=== PATIENT | female | born 1945 ===

== ENCOUNTER 2018-03-27 08:36 | Inpatient (IN) | payer MEDICARE, OTHER ==
[2018-03-27 08:41] VITALS: BMI 32.5
[2018-03-27] MEDS ORDERED: Sodium Chloride 0.9% 1,000 ML IV STA (08:52)
--- NOTE | 2018-03-27 08:58 | ED PDOC ---
Lower Extremity Pain/Injury Time Seen by Provider: 03/27/18 08:41 Chief Complaint (Nursing): Lower Extremity Problem/Injury History Per: Patient Onset/Duration Of Symptoms: Hrs (1) Current Symptoms Are (Timing): Still Present Severity: Moderate Pain Scale Rating Of: 7 Additional Complaint(s): Slipped at home with injury to right ankle. Denies other injury. Denies head, neck or back injury. Denies dizziness or headache. Denies chest pain or palpitaions. Past Medical History Vital Signs: Last Vital Signs Temp 97 F L 03/27/18 08:40 Pulse 77 03/27/18 08:40 Resp BP 164/81 H 03/27/18 08:40 Pulse Ox 100 03/27/18 08:40 - Medical History PMH: Anemia, Colonic Polyps, Diabetes, HTN Denies: Chronic Kidney Disease - Surgical History Surgical History: Endoscopy - Family History Family History: States: Unknown Family Hx - Home Medications Home Medications: Ambulatory Orders Medication Instructions Recorded Metformin Hydrochloride/Elizabeth 1 tab PO DAILY 12/09/14 [Janumet 1000 mg-50 mg] Olmesartan/Hydrochlorothiazide 1 tab PO DAILY 12/09/14 [Benicar Hct 12.5 mg-20 mg] Aspirin [Aspirin EC] 1 tab PO DAILY 12/12/14 - Allergies Allergies/Adverse Reactions: Allergies Allergy/AdvReac Type Severity Reaction Status Date / Time No Known Allergies Allergy Verified 12/09/14 09:15 Review of Systems ROS Statement: Except As Marked, All Systems Reviewed And Found Negative Musculoskeletal: Positive for: Other (Ankle pain) Physical Exam - Reviewed Nursing Documentation Reviewed: Yes Vital Signs Reviewed: Yes - Physical Exam Appears: Positive for: Non-toxic, Uncomfortable Head Exam: Positive for: ATRAUMATIC, NORMAL INSPECTION, NORMOCEPHALIC Skin: Positive for: Normal Color, Warm, DRY Eye Exam: Positive for: EOMI, Normal appearance, PERRL ENT: Positive for: Normal ENT Inspection Neck: Positive for: Normal, Painless ROM Cardiovascular/Chest: Positive for: Regular Rate, Rhythm Respiratory: Positive for: CNT, Normal Breath Sounds Gastrointestinal/Abdominal: Positive for: Normal Exam, Soft Back: Positive for: Normal Inspection Extremity: Positive for: Other (Right ankle, medial maleolus, distal tibia protruding from open wound over medial maleolus. DP pulse right side 2/4. Pt able to wiggle toes, sensation intact) Neurologic/Psych: Positive for: Alert, Oriented - Laboratory Results Result Diagrams: 03/27/18 09:05 03/27/18 09:05 - ECG O2 Sat by Pulse Oximetry: 100 - Progress Re-evaluation Time: 09:34 Condition: Re-examined (Xray displaced fx distal fibula with dislocation tibia with disruption of mortise. DP pulse 2/4 color pink, foot warm able to move all toes with sensation intact) Disposition - Clinical Impression Clinical Impression: Open fibular fracture - Patient ED Disposition Is Patient to be Admitted: Yes - Disposition Disposition Time: 09:43 Condition: FAIR Forms: [employer] (Sinhala) - Pt Status Changed To: Hospital Disposition Of: Inpatient - Admit Certification Admit to Inpatient:: After my assessment, the patient will require hospitalization for at least two midnights. This is because of the severity of symptoms shown, intensity of services needed, and/or the medical risk in this patient being treated as an outpatient. - POA Present On Arrival: None
[2018-03-27 09:19] LABS: BASO % 0.4 % (0.0-2.0); EOS % 0.4 % (0.0-4.0); LYMPH # 1.5 K/uL (1.0-4.3); LYMPH % 21.3 % (20.0-40.0); MEAN CELL VOLUME 89.9 fl (81.0-99.0); MEAN CORPUSCULAR HEMOGLOBIN 29.6 pg (27.0-31.0); MEAN CORPUSCULAR HGB CONC 32.9 g/dL (33.0-37.0); MEAN PLATELET VOLUME 9.2 fl (7.2-11.7); MONO # 0.4 K/uL (0.0-0.8); MONO % 5.8 % (0.0-10.0); NEUT % 72.1 % (50.0-75.0); NRBC % 0.1 % (0.0-0.0); RBC 4.06 Mil/uL (3.80-5.20); RED CELL DISTRIBUTION WIDTH 13.9 % (11.5-14.5)
[2018-03-27 09:24] LABS: ALB/GLOB RATIO 1.2 (1.0-2.1); ALBUMIN 4.1 g/dL (3.5-5.0); ALT/SGPT 39 U/L (9-52); AST/SGOT 26 U/L (14-36); BLOOD UREA NITROGEN 16 mg/dl (7-17); CALCIUM 9.2 mg/dL (8.4-10.2); GFR NON-AFRICAN AMERICAN > 60
[2018-03-27] MEDS ORDERED: Vancomycin 1 g Inj ONE (09:31)
--- NOTE | 2018-03-27 09:40 | RAD ---
Date of service: 03/27/2018 PROCEDURE: CHEST RADIOGRAPH, 1 VIEW HISTORY: Ankle fracture COMPARISON: None available. FINDINGS: LUNGS: The lungs are well inflated and clear. PLEURA: No pneumothorax or pleural effusion. CARDIOVASCULAR: The heart is normal in size. No aortic atherosclerotic calcifications present. OSSEOUS STRUCTURES: Within normal limits for the patient's age. VISUALIZED UPPER ABDOMEN: Normal. OTHER FINDINGS: None. IMPRESSION: No active pulmonary disease.
[2018-03-27 10:14] LABS: INR 1.1
[2018-03-27] MEDS ORDERED: Midazolam 2 MG/2 ML VIAL ONE (10:47)
[2018-03-27] MEDS ORDERED: Propofol 10 mg/ml Inj (20 ML) ONE (10:47)
[2018-03-27] MEDS ORDERED: Rocuronium 10 mg/ml (5 ml) ONE (10:47)
[2018-03-27] MEDS ORDERED: Succinylcholine 200 mg/10 ml Inj IV ONE (10:52)
[2018-03-27] MEDS ORDERED: Etomidate 20 mg/10ml Inj IV ONE (10:57)
[2018-03-27] MEDS ORDERED: Lidocaine 1% Inj (20ml) IJ ONE (11:20)
[2018-03-27] MEDS ORDERED: ceFAZolin 1 GM in Sodium Chloride 0.9% 100 ML IVPB ONE (11:20)
[2018-03-27] MEDS ORDERED: Bupivacaine 0.5% Inj(30mL) IJ ONE (11:20)
--- NOTE | 2018-03-27 11:22 | CP.PCM.PN ---
Objective - Vital Signs/Intake and Output Vital Signs (last 24 hours): Temp Pulse Resp BP Pulse Ox 97 F L 77 18 157/71 H 100 03/27/18 11:08 03/27/18 11:08 03/27/18 11:08 03/27/18 11:08 03/27/18 11:08 - Medications Medications: Current Medications Sodium Chloride (Sodium Chloride 0.9%) 1,000 mls @ 100 mls/hr IV .Q10H STA Stop: 03/27/18 18:51 Last Admin: 03/27/18 09:31 Dose: 100 mls/hr - Labs Labs: 03/27/18 09:05 03/27/18 09:05 PT 13.0 Seconds (9.8-13.1) 03/27/18 09:50 INR 1.1 03/27/18 09:50
--- NOTE | 2018-03-27 11:22 | CP.PCM.CON ---
History of Present Illness - History of Present Illness History of Present Illness: Podiatry consult note for Dr. Shaw/Dr. Lea 73 y/o female patient was seen and evaluated in the ED s/p fall this AM. Patient presented to the ED with an open fracture of the right ankle. Patient states she got out of bed as the phone was ringing, slipped on the floor and fell. Patient states she lives with her daughter and . Patient's daughter are present at bedside, however, neither saw patient fall. Patient is alert and awake, oriented x 3 during examination. Patient denies any other complaints. Patient states her pain is 10/10. Patient denies LOC, or any head injuries. Patient denies any F/N/V/SOB/CP. PMHx: Diabetes, HTN, hx of palpitations PSHx: Colonoscopy Allergies: nones Review of Systems - Review of Systems All systems: reviewed and no additional remarkable complaints except Review of Systems: As per HPI Past Patient History - Past Medical History & Family History Past Medical History?: Yes - Past Social History Smoking Status: Never Smoked - CARDIAC Hx Cardiac Disorders: Yes Hx Hypertension: Yes - PULMONARY Hx Respiratory Disorders: No - NEUROLOGICAL Hx Neurological Disorder: No - HEENT Hx HEENT Problems: No - RENAL Hx Chronic Kidney Disease: No - ENDOCRINE/METABOLIC Hx Endocrine Disorders: Yes Hx Diabetes Mellitus Type 2: Yes - HEMATOLOGICAL/ONCOLOGICAL Hx Anemia: Yes - INTEGUMENTARY Hx Dermatological Problems: No - MUSCULOSKELETAL/RHEUMATOLOGICAL Hx Musculoskeletal Disorders: No - GASTROINTESTINAL Hx Gastrointestinal Disorders: Yes Hx Gastroesophageal Reflux: Yes - GENITOURINARY/GYNECOLOGICAL Hx Genitourinary Disorders: No - PSYCHIATRIC Hx Emotional Abuse: No Hx Physical Abuse: No - SURGICAL HISTORY Hx Surgeries: Yes Hx Eye Surgery: Yes Hx Orthopedic Surgery: Yes (BOTH FEET) - ANESTHESIA Hx Anesthesia: Yes Hx Anesthesia Reactions: No Hx Malignant Hyperthermia: No Meds Allergies/Adverse Reactions: Allergies Allergy/AdvReac Type Severity Reaction Status Date / Time No Known Allergies Allergy Verified 12/09/14 09:15 - Medications Medications: Current Medications Bupivacaine HCl (Marcaine 0.5%) 20 ml IJ ONCE ONE Stop: 03/27/18 11:21 Sodium Chloride (Sodium Chloride 0.9%) 1,000 mls @ 100 mls/hr IV .Q10H STA Stop: 03/27/18 18:51 Last Admin: 03/27/18 09:31 Dose: 100 mls/hr Cefazolin Sodium 1 gm/ Sodium (Chloride) 100 mls @ 100 mls/hr IVPB ONCE ONE; Protocol Stop: 03/27/18 12:19 Sodium Chloride (Sodium Chloride 0.9%) 1,000 mls @ 0 mls/hr IV .Q0M MANFRED Stop: 03/28/18 11:20 Lidocaine HCl (Lidocaine 1% (20ml)) 20 ml IJ ONCE ONE Stop: 03/27/18 11:21 Physical Exam - Constitutional Appears: Well, Non-toxic, In Acute Distress - Head Exam Head Exam: ATRAUMATIC, NORMOCEPHALIC - Extremities Exam Additional comments: Right Lower Extremity Exam VASC: DP pulse bounding at 3/4, unable to assess PT pulse at site of open fracture, CFT less than 3 seconds X 5 NEURO: gross sensation intact ORTHO: patient guarding due to significant pain DERM: open fracture noted at the level of the medial malleolus with an approximately 6 cm laceration, bone protruding through laceration site and exposed to air, with active bleeding, no arterial damage noted through laceration site, ecchymosis noted to inferior to open laceration site extending to anterior ankle, adequate soft tissue appreciated - Neurological Exam Neurological exam: Alert, Oriented x3 - Psychiatric Exam Psychiatric exam: Anxious, Normal Mood Results - Vital Signs Recent Vital Signs: Last Vital Signs Temp 97 F L 03/27/18 11:08 Pulse 77 03/27/18 11:08 Resp 18 03/27/18 11:08 BP 157/71 H 03/27/18 11:08 Pulse Ox 100 03/27/18 11:08 - Labs Result Diagrams: 03/28/18 08:13 03/28/18 08:13 Labs: Laboratory Results - last 24 hr 03/27/18 03/27/18 03/27/18 09:05 09:05 09:33 WBC 7.0 RBC 4.06 Hgb 12.0 Hct 36.5 MCV 89.9 MCH 29.6 MCHC 32.9 L RDW 13.9 Plt Count 223 MPV 9.2 Neut % (Auto) 72.1 Lymph % (Auto) 21.3 [place] % (Auto) 5.8 Eos % (Auto) 0.4 Baso % (Auto) 0.4 Neut # (Auto) 5.0 Lymph # (Auto) 1.5 [place] # (Auto) 0.4 Eos # (Auto) 0.0 Baso # (Auto) 0.0 PT INR Sodium 138 Potassium 3.8 Chloride 100 Carbon Dioxide 26 Anion Gap 16 BUN 16 Creatinine 0.8 Est GFR ( Amer) > 60 Est GFR (Non-Af Amer) > 60 POC Glucose (mg/dL) 191 H Random Glucose 214 H Calcium 9.2 Total Bilirubin 0.7 AST 26 ALT 39 Alkaline Phosphatase 77 Total Protein 7.5 Albumin 4.1 Globulin 3.4 Albumin/Globulin Ratio 1.2 03/27/18 09:50 WBC RBC Hgb Hct MCV MCH MCHC RDW Plt Count MPV Neut % (Auto) Lymph % (Auto) [place] % (Auto) Eos % (Auto) Baso % (Auto) Neut # (Auto) Lymph # (Auto) [place] # (Auto) Eos # (Auto) Baso # (Auto) PT 13.0 INR 1.1 Sodium Potassium Chloride Carbon Dioxide Anion Gap BUN Creatinine Est GFR ( Amer) Est GFR (Non-Af Amer) POC Glucose (mg/dL) Random Glucose Calcium Total Bilirubin AST ALT Alkaline Phosphatase Total Protein Albumin Globulin Albumin/Globulin Ratio Assessment & Plan - Assessment and Plan (Free Text) Assessment: 73 y/o female seen and evaluated in the ED for an open fracture, Gustillo Edmund 3A Plan: Patient seen and evaluated at bedside Plan discussed with attending Dr. Lea/Dr. Shaw Right Ankle X-ray:fracture dislocation of the right ankle with displaced medial malleolar fracture and comminuted oblique fracture of the distal right fibula Right CT: open comminuted displaced fracture in the distal fibula, intra- articular longitudinal non-displaced fracture in the anterior aspect of the distal epiphysis of tibia and dislocation of ankle joint Patient NPO status was confirmed, patient had last ate/drank around 9 PM Patient and family educated on the importance of taking patient immediately to the OR as this was an open fracture Patient and family demonstrated verbal understanding Medicine team was brought on board to clear patient for surgery Patient was brought into the operating room to perform reduction and internal fixation of the right ankle Patient to be admitted after surgery Physical therapy orders were placed, patient to remain NWB to the [facility] in a posterior splint - Date & Time Date: 03/27/18 Time: 09:44
[2018-03-27] MEDS ORDERED: Sodium Chloride 0.9% 1,000 ML IV SCH (11:30)
--- NOTE | 2018-03-27 11:30 | CP.PCM.HP ---
<Belén Sarmiento - Last Filed: 03/27/18 16:01> History of Present Illness - History of Present Illness History of Present Illness: 73 yo female with pmhx of diabetes, htn seen in the ED for right open tibial fracture. 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 Patient states her foot went in one direction while her body went in the other direction. States it was bleeding a lot initially, however it stopped after a while. DAdmits to morphine helping with the pain. Denies any other medical complains. Patient denies f/n/v/sob/cp/headaches/d/c. States she is rx aspirin 81 mg, but stopped taking it about a week ago. [employer]: trouble recalling the name PMD: Dr. [facility] in [place] medications through her pharmacy: calcium, vitamin d, lopressor, aspirin 81 mg, amlodipine hctz, protonix, acetaminophen, janumet, crestor, voltaren gel. code status; unknown Present on Admission - Present on Admission Any Indicators Present on Admission: No Past Patient History - Past Medical History & Family History Past Medical History?: Yes - Past Social History Smoking Status: Never Smoked - CARDIAC Hx Cardiac Disorders: Yes Hx Hypertension: Yes - PULMONARY Hx Respiratory Disorders: No - NEUROLOGICAL Hx Neurological Disorder: No - HEENT Hx HEENT Problems: No - RENAL Hx Chronic Kidney Disease: No - ENDOCRINE/METABOLIC Hx Endocrine Disorders: Yes Hx Diabetes Mellitus Type 2: Yes - HEMATOLOGICAL/ONCOLOGICAL Hx Anemia: Yes - INTEGUMENTARY Hx Dermatological Problems: No - MUSCULOSKELETAL/RHEUMATOLOGICAL Hx Musculoskeletal Disorders: No - GASTROINTESTINAL Hx Gastrointestinal Disorders: Yes Hx Gastroesophageal Reflux: Yes - GENITOURINARY/GYNECOLOGICAL Hx Genitourinary Disorders: No - PSYCHIATRIC Hx Emotional Abuse: No Hx Physical Abuse: No - SURGICAL HISTORY Hx Surgeries: Yes Hx Eye Surgery: Yes Hx Orthopedic Surgery: Yes (BOTH FEET) - ANESTHESIA Hx Anesthesia: Yes Hx Anesthesia Reactions: No Hx Malignant Hyperthermia: No Meds Allergies/Adverse Reactions: Allergies Allergy/AdvReac Type Severity Reaction Status Date / Time No Known Allergies Allergy Verified 12/09/14 09:15 Physical Exam - Constitutional Appears: Well, Non-toxic, No Acute Distress - Head Exam Head Exam: ATRAUMATIC, NORMOCEPHALIC - Eye Exam Eye Exam: EOMI, Normal appearance Pupil Exam: NORMAL ACCOMODATION - ENT Exam ENT Exam: Mucous Membranes Moist, Normal Exam - Neck Exam Neck exam: Positive for: Normal Inspection - Respiratory Exam Respiratory Exam: Clear to Auscultation Bilateral - Cardiovascular Exam Cardiovascular Exam: REGULAR RHYTHM - GI/Abdominal Exam GI & Abdominal Exam: Normal Bowel Sounds - Extremities Exam Extremities exam: Positive for: joint swelling, normal capillary refill, pedal pulses present. Negative for: full ROM Additional comments: open fracture of the right tibia. No active bleeding noted, bone and tendons noted to be protruding from the site. DP pulse palpable. - Neurological Exam Neurological exam: Normal Gait - Psychiatric Exam Psychiatric exam: Normal Affect Results - Vital Signs Recent Vital Signs: Last Vital Signs Temp 97 F L 03/27/18 11:08 Pulse 77 03/27/18 11:08 Resp 18 03/27/18 11:08 BP 157/71 H 03/27/18 11:08 Pulse Ox 100 03/27/18 11:08 - Labs Result Diagrams: 03/27/18 09:05 03/27/18 09:05 Labs: Laboratory Results - last 24 hr 03/27/18 03/27/18 03/27/18 09:05 09:05 09:33 WBC 7.0 RBC 4.06 Hgb 12.0 Hct 36.5 MCV 89.9 MCH 29.6 MCHC 32.9 L RDW 13.9 Plt Count 223 MPV 9.2 Neut % (Auto) 72.1 Lymph % (Auto) 21.3 [place] % (Auto) 5.8 Eos % (Auto) 0.4 Baso % (Auto) 0.4 Neut # (Auto) 5.0 Lymph # (Auto) 1.5 [place] # (Auto) 0.4 Eos # (Auto) 0.0 Baso # (Auto) 0.0 PT INR Sodium 138 Potassium 3.8 Chloride 100 Carbon Dioxide 26 Anion Gap 16 BUN 16 Creatinine 0.8 Est GFR ( Amer) > 60 Est GFR (Non-Af Amer) > 60 POC Glucose (mg/dL) 191 H Random Glucose 214 H Calcium 9.2 Total Bilirubin 0.7 AST 26 ALT 39 Alkaline Phosphatase 77 Total Protein 7.5 Albumin 4.1 Globulin 3.4 Albumin/Globulin Ratio 1.2 03/27/18 09:50 WBC RBC Hgb Hct MCV MCH MCHC RDW Plt Count MPV Neut % (Auto) Lymph % (Auto) [place] % (Auto) Eos % (Auto) Baso % (Auto) Neut # (Auto) Lymph # (Auto) [place] # (Auto) Eos # (Auto) Baso # (Auto) PT 13.0 INR 1.1 Sodium Potassium Chloride Carbon Dioxide Anion Gap BUN Creatinine Est GFR ( Amer) Est GFR (Non-Af Amer) POC Glucose (mg/dL) Random Glucose Calcium Total Bilirubin AST ALT Alkaline Phosphatase Total Protein Albumin Globulin Albumin/Globulin Ratio Assessment & Plan - Assessment and Plan (Free Text) Assessment: 73 yo female seen and evaluated in the ED for right open tibial fracture Plan: Right open tibial fracture - right foot dressed with kerlix and no active bleeding - morphine 2 mg in ED - Per podiatry, patient for washout of the open fracture with ORIF of the right ankle this morning - Cefazolin 1 gm for prophylaxis. - chest x-ray: no active pulmonary disease - ankle x-ray and CT: right dislocated ankle with tibial and fibular fracture - Echocardiogram: - Patient with pmhx of diabetes and htn medically optimized for surgery today with low-moderate risk. Diabetes Mellitus - CW home medications Hypertension -CW home medications Diet - NPO for surgery Code status: -Unknown <Krista Servin - Last Filed: 03/29/18 10:31> Results - Vital Signs Recent Vital Signs: Last Vital Signs Temp 98.4 F 03/29/18 08:04 Pulse 96 H 03/29/18 08:04 Resp 20 03/29/18 08:04 BP 101/63 03/29/18 08:04 Pulse Ox 96 03/29/18 08:04 - Labs Result Diagrams: 03/29/18 04:25 03/28/18 08:13 Labs: Laboratory Results - last 24 hr 03/28/18 03/28/18 03/28/18 11:25 16:28 21:39 WBC RBC Hgb Hct MCV MCH MCHC RDW Plt Count MPV Neut % (Auto) Lymph % (Auto) [place] % (Auto) Eos % (Auto) Baso % (Auto) Neut # (Auto) Lymph # (Auto) [place] # (Auto) Eos # (Auto) Baso # (Auto) POC Glucose (mg/dL) 265 H 222 H 242 H Urine Color Urine Clarity Urine pH Ur Specific [place] Urine Protein Urine Glucose (UA) Urine Ketones Urine Blood Urine Nitrate Urine Bilirubin Urine Urobilinogen Ur Leukocyte Esterase Urine RBC (Auto) Urine Microscopic WBC Ur Squamous Epith Cells 03/29/18 03/29/18 04:25 09:50 WBC 8.7 RBC 3.53 L Hgb 10.4 L Hct 31.2 L MCV 88.5 MCH 29.5 MCHC 33.3 RDW 13.7 Plt Count 166 MPV 9.5 Neut % (Auto) 69.9 Lymph % (Auto) 16.3 L [place] % (Auto) 12.1 H Eos % (Auto) 1.3 Baso % (Auto) 0.4 Neut # (Auto) 6.1 Lymph # (Auto) 1.4 [place] # (Auto) 1.1 H Eos # (Auto) 0.1 Baso # (Auto) 0.0 POC Glucose (mg/dL) Urine Color Yellow Urine Clarity Slighty-cloudy Urine pH 6.0 Ur Specific [place] 1.025 Urine Protein 30 Urine Glucose (UA) 50 Urine Ketones 20 Urine Blood Negative Urine Nitrate Negative Urine Bilirubin Negative Urine Urobilinogen 0.2-1.0 Ur Leukocyte Esterase Trace Urine RBC (Auto) 2 Urine Microscopic WBC 2 Ur Squamous Epith Cells 4 Attending/Attestation - Attestation I have personally seen and examined this patient.: Yes I have fully participated in the care of the patient.: Yes I have reviewed all pertinent clinical information: Yes Notes (Text): 03/29/18 10:31 Agree with findings and plan as above.
[2018-03-27] MEDS ORDERED: Bupivacaine HCl 0.5% PF (30 ml) Inj ONE (11:39)
[2018-03-27] MEDS ORDERED: Bacitracin Ointment 30 GM TUBE ONE (11:39)
[2018-03-27] MEDS ORDERED: Lidocaine 1% Inj (20ml) ONE (11:39)
[2018-03-27] MEDS ORDERED: Lactated Ringer's 1,000 ML IV ONE ×2 (11:41→11:45)
--- NOTE | 2018-03-27 11:55 | CT ---
Date of service: 03/27/2018 PROCEDURE: CT scan of the right ankle without contrast PROCEDURE: INDICATION: Trauma TECHNIQUE: Multiple axial images were obtained with slice thickness of 2.5 mm. Coronal and sagittal reformatted images were obtained. Iterative reconstruction was used. Radiation dose: Total exam DLP = 459.8 mGy-cm. PROCEDURE: This CT exam was performed using one or more of the following dose reduction techniques: Automated exposure control, adjustment of the mA and/or kV according to patient size, and/or use of iterative reconstruction technique. COMPARISON: Plain radiographs performed earlier. FINDINGS: There is an acute displaced comminuted fracture in the medial malleolus with 2.5 cm lateral displacement and 1.9 cm posterior displacement. There is an intra-articular longitudinal nondisplaced fracture in the anterior aspect of the distal epiphysis of tibia. There is dislocation of the ankle joint. There is air in the periarticular soft tissues and intra-articular air related to open wound. Evaluation of the ligaments and tendons is limited on noncontrast CT examination. There is diffuse soft tissue swelling and subcutaneous edema. IMPRESSION: Open comminuted displaced fracture in the distal fibula, intra-articular longitudinal nondisplaced fracture in the anterior aspect of the distal epiphysis of tibia and dislocation of the ankle joint. Additional comments as described above.
[2018-03-27] MEDS ORDERED: Ropivacaine 0.5% 30ML IV ONE (12:27)
[2018-03-27] MEDS ORDERED: Morphine 1 mg/ml preservative-free Inj(Duramorph) ONE (12:58)
[2018-03-27] MEDS ORDERED: Labetalol 5mg/ml (4ml) ONE (13:48)
--- NOTE | 2018-03-27 13:56 | RAD ---
Date of service: 03/27/2018 PROCEDURE: Right Foot Radiographs. HISTORY: trauma COMPARISON: March 27, 2018 FINDINGS: BONES: Incompletely visualized fracture dislocation right ankle. SOFT TISSUES: Soft tissue swelling attests to the acuity of the fracture. OTHER FINDINGS: None. IMPRESSION: Incompletely visualized fracture dislocation right ankle. Findings are visualized with a greater degree of clarity on the concurrent CT scan.
--- NOTE | 2018-03-27 13:57 | RAD ---
Date of service: 03/27/2018 PROCEDURE: Right Ankle Radiographs. HISTORY: trauma COMPARISON: March 27, 2018 FINDINGS: BONES: Fractures of the distal right tibia and fibula. This includes displaced medial malleolar fracture and comminuted oblique fracture of the distal right fibula. JOINTS: Dislocation of the talus relative to the fractured distal tibia and fibula. SOFT TISSUES: Normal. OTHER FINDINGS: None. IMPRESSION: Fracture dislocation right ankle. Findings the seen with a greater degree of clarity of the concurrent CT scan.
[2018-03-27] MEDS ORDERED: Neostigmine 1:1000 (1 mg/ml) Inj ONE (14:19)
--- NOTE | 2018-03-27 14:28 | RAD ---
Date of service: 03/27/2018 PROCEDURE: Fluoroscopic assistance in excess of 1 hour. HISTORY: RIGHT ANKLE COMPARISON: None TECHNIQUE: Standard protocol for this study/examination. FINDINGS: Total fluoroscopic time (continuous mode) utilized during the procedure 105.3 seconds. Total exam DLP: (mGy). IMPRESSION: 1.69 Submitted images from the current procedure: 12.0
--- NOTE | 2018-03-27 14:46 | PCM.SURG1 ---
Surgeon's Initial Post Op Note - Surgeon's Notes Surgeon: Dr. Shaw, DPM, Dr. Lea, DPM Extrusion Die Template Maker: Dr. Michelle Munoz, PGY3, Dr. Hernandez, PGY3, Dr. Sanchez, PGY2 Type of Anesthesia: General Endo Anesthesia Administered By: Dr. Guevara Pre-Operative Diagnosis: Right ankle, displaced, and open ankle fracture Operative Findings: see dication. I: Post-op 10 cc Marcaine plaine, politeal block. M: 2-0 Vicryl, 3-0 Vicryl, 4-0 Vicryl, 4-0 Nylon. 2.7 X 16mm corticla screw, 2.7 X 18mm cortical screw, 35 X 22 mm cortical screw, 10-hole 1/3 tubular plate, 3.5 X 14mm locking screw (x4), 3.5 x 16mm locking screw (x2), 3.5 X 12mm locking screw, 3.5 X 12 mm cortical screw, 4.0 X 36mm cannulated screw Post-Operative Diagnosis: same Operation Performed: Right ankle open reduction and internal fixation Specimen/Specimens Removed: none Estimated Blood Loss: EBL {In ML}: 30 Blood Products Given: N/A Drains Used: No Drains Post-Op Condition: Good Date of Surgery/Procedure: 03/27/18 Time of Surgery/Procedure: 14:46
--- NOTE | 2018-03-27 15:15 | PCM.ANESB2 ---
Popliteal Nerve Block - Popliteal Nerve Block Date of Procedure: 03/27/18 Procedure Performed: Popliteal Nerve Block Right - Procedure Popliteal Nerve Block: This procedure was explained to the patient that it is for post-operative pain management. Consent was obtained after a thorough discussion with the patient regarding the benefits and possible complications of local anesthetic block of the sciatic nerve at the popliteal level. The patient was brought to the operating room and standard monitors are applied. Time-out was held with the circulating nurse to confirm the correct surgery and the appropriate block. After applying oxygen by nasal cannula and administering IV Sedation, patient's operative leg was gently raised and supported and the groove in between the biceps femoris and vastus lateralis muscles was carefully palpated. The skin savita roximately 8cm above the popliteal crease was then marked. The ultrasound transducer was then applied to the posterior thigh approximately 8cm above the popliteal crease in the transverse plane and the sciatic nerve before its division was visualized lateral to the popliteal artery and in between the bicep femoris and semimembranosus/semitendinosus muscles. After identification, the lateral portion of the thigh was prepped with chloroprep solution. At this point, a # 21 gauge Stimuplex insulated 4 inch needle was inserted into pre-marked area and advanced in a perpendicular direction. The needle was inserted above the ultrasound transducer in-plane towards the sciatic nerve in a [id number] direction. Needle advancement was performed carefully under direct ultrasound visualization. Nerve stimulator was used and dorsiflexion of the __right___ foot was elicited at a current of __0.4___ MA. After repeated negative aspiration, __5___cc of __0.5___ % ___ropivavaine was injected and this was flowed with ____15__ cc of ___0.5___% ____Ropivacaine . Under ultrasound guidance the local anesthetics were observed surrounding sciatic nerve . The needle was removed intact and sterile dressing was applied. The patient tolerated the popliteal nerve block well with stable vital signs.
--- NOTE | 2018-03-27 16:50 | RAD ---
Date of service: 03/27/2018 PROCEDURE: Right Ankle Radiographs. HISTORY: s/p right ankle ORIF COMPARISON: Preoperative study March 27, 2018 FINDINGS: BONES: Major fracture fragments are anatomically aligned. No evidence of orthopedic hardware failure. JOINTS: Normal. No osteoarthritis. Ankle mortise maintained. Talar dome intact SOFT TISSUES: Normal. OTHER FINDINGS: None. IMPRESSION: Satisfactory postoperative status. Limitations of the current study: Detail obscured by overlying fiberglass cast.
--- NOTE | 2018-03-27 17:55 | CARD ---
APPROVED REPORT Date of service: 03/27/2018 EKG Measurement Heart [id number] <Conclusion> Normal sinus rhythm Right bundle branch block Abnormal ECG
[2018-03-28] MEDS: Calcium-Vit D 500 mg-200 Units Tab UD PO SCH ×3 (00:30→21:04)
[2018-03-28] MEDS: Oxycodone/Acetaminophen 5/325 mg Tab PO PRN ×4 (02:42→21:01)
[2018-03-28] MEDS ORDERED: Pneumococcal 23-Valent Vaccine IM ONE (06:30)
[2018-03-28 08:28] LABS: BASO % 0.3 % (0.0-2.0); EOS # 0.1 K/uL (0.0-0.7); EOS % 0.7 % (0.0-4.0); HEMOGLOBIN 10.1 g/dL (12.0-16.0); LYMPH % 25.2 % (20.0-40.0); MEAN CELL VOLUME 90.1 fl (81.0-99.0); MEAN CORPUSCULAR HEMOGLOBIN 29.7 pg (27.0-31.0); MEAN CORPUSCULAR HGB CONC 32.9 g/dL (33.0-37.0); MEAN PLATELET VOLUME 9.2 fl (7.2-11.7); MONO % 12.5 % (0.0-10.0); NEUT # 4.8 K/uL (1.8-7.0); NEUT % 61.3 % (50.0-75.0); RBC 3.39 Mil/uL (3.80-5.20); RED CELL DISTRIBUTION WIDTH 13.7 % (11.5-14.5); WHITE BLOOD COUNT 7.8 K/uL (4.8-10.8)
[2018-03-28] MEDS: Pantoprazole 40 mg EC Tab PO SCH (08:33)
[2018-03-28 08:41] LABS: BLOOD UREA NITROGEN 9 mg/dl (7-17); CALCIUM 8.3 mg/dL (8.4-10.2); GFR NON-AFRICAN AMERICAN > 60
[2018-03-28] MEDS ORDERED: OLMESARTAN PO SCH (09:00)
[2018-03-28] MEDS ORDERED: [UNRECOGNIZED DRUG - OTHER] PO SCH (09:00)
[2018-03-28] MEDS ORDERED: AMLODIPIN PO SCH (09:00)
[2018-03-28] MEDS ORDERED: HCTHIAZID PO SCH (09:00)
--- NOTE | 2018-03-28 09:46 | CP.PCM.PN ---
Subjective - Date & Time of Evaluation Date of Evaluation: 03/28/18 Time of Evaluation: 09:44 - Subjective Subjective: Podiatry progress note for Dr. Shaw/Dr. Lea 73 y/o female patient was seen and evaluated at bedside POD1 right ankle ORIF. Patient states her pain is well controlled at this time. Patient is AAOx3, and in NAD. Patient states she was able to rest comfortably, and denied any overnight events. Patient denies F/N/V/SOB/CP. Objective - Vital Signs/Intake and Output Vital Signs (last 24 hours): Temp Pulse Resp BP Pulse Ox 98.7 F 75 20 114/67 97 03/28/18 09:23 03/28/18 09:23 03/28/18 09:23 03/28/18 09:23 03/28/18 09:23 - Medications Medications: Current Medications Acetaminophen (Tylenol 325mg Tab) 325 mg PO Q4 PRN PRN Reason: Pain, Mild (1-3) Amlodipine Besylate (Norvasc) 5 mg PO DAILY [facility] Last Admin: 03/28/18 08:31 Dose: 5 mg Atorvastatin Calcium (Lipitor) 20 mg PO HS [facility] Calcium/Vitamin D (Oyster Shell Calcium/Vitamin D 500 Mg-200 Iu) 1 tab PO BID [facility] Last Admin: 03/28/18 08:32 Dose: 1 tab Ciprofloxacin (Cipro) 500 mg PO Q12 [facility]; Protocol Enoxaparin Sodium (Lovenox) 40 mg SC DAILY [facility]; Protocol Hydrochlorothiazide (Microzide) 12.5 mg PO DAILY [facility] Last Admin: 03/28/18 08:31 Dose: 12.5 mg Sodium Chloride (Sodium Chloride 0.9%) 1,000 mls @ 0 mls/hr IV .Q0M [facility] Stop: 03/28/18 11:20 Losartan Potassium (Cozaar) 100 mg PO DAILY [facility] Last Admin: 03/28/18 08:36 Dose: 100 mg Metoprolol Tartrate (Lopressor) 25 mg PO DAILY PRN PRN Reason: Palpitations Oxycodone/Acetaminophen (Percocet 5/325 Mg Tab) 1 tab PO Q4 PRN PRN Reason: Pain, moderate (4-7) Stop: 03/30/18 14:42 Last Admin: 03/28/18 02:42 Dose: 1 tab Oxycodone/Acetaminophen (Percocet 5/325 Mg Tab) 2 tab PO Q4 PRN PRN Reason: Pain, severe (8-10) Stop: 03/30/18 14:42 Last Admin: 03/28/18 08:26 Dose: 2 tab Pantoprazole Sodium (Protonix Ec Tab) 40 mg PO DAILY [facility] Last Admin: 03/28/18 08:33 Dose: 40 mg Sitagliptin Phosphate (Januvia) 100 mg PO DAILY [facility] Last Admin: 03/28/18 08:34 Dose: 100 mg - Labs Labs: 03/28/18 08:13 03/28/18 08:13 PT 13.0 Seconds (9.8-13.1) 03/27/18 09:50 INR 1.1 03/27/18 09:50 - Constitutional Appears: Well, Non-toxic, No Acute Distress - Head Exam Head Exam: ATRAUMATIC, NORMOCEPHALIC - Extremities Exam Additional comments: Patient posterior splint kept intact, with CFT x 5 less than 3 seconds, patient able to wiggle digits, patient denied numbness/tingling - Neurological Exam Neurological Exam: Alert, Awake, Oriented x3 - Psychiatric Exam Psychiatric exam: Normal Affect, Normal Mood Assessment and Plan - Assessment and Plan (Free Text) Assessment: 73 y/o female patient seen and evaluated at bedside POD1 right ankle open fracture ORIF Plan: Patient seen and evaluated at bedside Plan discussed with attending Dr. Lea/Dr. Shaw Right Ankle X-ray:fracture dislocation of the right ankle with displaced medial malleolar fracture and comminuted oblique fracture of the distal right fibula Right CT: open comminuted displaced fracture in the distal fibula, intra- articular longitudinal non-displaced fracture in the anterior aspect of the distal epiphysis of tibia and dislocation of ankle joint Patient received Vancomycin in the ED and Ancef 1 gm in the OR Patient currently on Cipro PO 500 mg BID at this time Patient likely to be discharged to a subacute rehab facility Patient to remain NWB to the RLE in a posterior splint, and patient to be evaluated by Physical therapy for further gait training Podiatry will continue to follow patient while she is in house
--- NOTE | 2018-03-28 11:52 | CP.PCM.DIS ---
Provider - Provider Date of Admission: 03/27/18 09:41 Attending physician: Krista Servin DO Consults: 03/27/18 23:11 Nursing Referral for Wound Care Routine Comment: Physician Instructions: Reason For Exam: s/p ORIF RIGHT ANKLE Time Spent in preparation of Discharge (in minutes): 30 Diagnosis - Discharge Diagnosis (1) Open fibular fracture Status: Acute Hospital Course - Lab Results Lab Results: Micro Results 03/27/18 09:05 Blood-Venous Blood Culture - Preliminary NO GROWTH AFTER 24 HOURS Most Recent Lab Values WBC 7.8 K/uL (4.8-10.8) 03/28/18 08:13 RBC 3.39 Mil/uL (3.80-5.20) L 03/28/18 08:13 Hgb 10.1 g/dL (12.0-16.0) L 03/28/18 08:13 Hct 30.6 % (34.0-47.0) L 03/28/18 08:13 MCV 90.1 fl (81.0-99.0) 03/28/18 08:13 MCH 29.7 pg (27.0-31.0) 03/28/18 08:13 MCHC 32.9 g/dL (33.0-37.0) L 03/28/18 08:13 RDW 13.7 % (11.5-14.5) 03/28/18 08:13 Plt Count 186 K/uL (130-400) 03/28/18 08:13 MPV 9.2 fl (7.2-11.7) 03/28/18 08:13 Neut % (Auto) 61.3 % (50.0-75.0) 03/28/18 08:13 Lymph % (Auto) 25.2 % (20.0-40.0) 03/28/18 08:13 [place] % (Auto) 12.5 % (0.0-10.0) H 03/28/18 08:13 Eos % (Auto) 0.7 % (0.0-4.0) 03/28/18 08:13 Baso % (Auto) 0.3 % (0.0-2.0) 03/28/18 08:13 Neut # (Auto) 4.8 K/uL (1.8-7.0) 03/28/18 08:13 Lymph # (Auto) 2.0 K/uL (1.0-4.3) 03/28/18 08:13 [place] # (Auto) 1.0 K/uL (0.0-0.8) H 03/28/18 08:13 Eos # (Auto) 0.1 K/uL (0.0-0.7) 03/28/18 08:13 Baso # (Auto) 0.0 K/uL (0.0-0.2) 03/28/18 08:13 PT 13.0 Seconds (9.8-13.1) 03/27/18 09:50 INR 1.1 03/27/18 09:50 Sodium 137 mmol/l (132-148) 03/28/18 08:13 Potassium 4.3 MMOL/L (3.6-5.0) 03/28/18 08:13 Chloride 104 mmol/L (98-107) 03/28/18 08:13 Carbon Dioxide 28 mmol/L (22-30) 03/28/18 08:13 Anion Gap 9 (10-20) L 03/28/18 08:13 BUN 9 mg/dl (7-17) 03/28/18 08:13 Creatinine 0.8 mg/dl (0.7-1.2) 03/28/18 08:13 Est GFR ( Amer) > 60 03/28/18 08:13 Est GFR (Non-Af Amer) > 60 03/28/18 08:13 POC Glucose (mg/dL) 203 mg/dL (65-110) H 03/28/18 06:11 Random Glucose 190 mg/dL (65-105) H 03/28/18 08:13 Calcium 8.3 mg/dL (8.4-10.2) L 03/28/18 08:13 Total Bilirubin 0.7 mg/dl (0.2-1.3) 03/27/18 09:05 AST 26 U/L (14-36) 03/27/18 09:05 ALT 39 U/L (9-52) 03/27/18 09:05 Alkaline Phosphatase 77 U/L (38-126) 03/27/18 09:05 Total Protein 7.5 G/DL (6.3-8.2) 03/27/18 09:05 Albumin 4.1 g/dL (3.5-5.0) 03/27/18 09:05 Globulin 3.4 gm/dL (2.2-3.9) 03/27/18 09:05 Albumin/Globulin Ratio 1.2 (1.0-2.1) 03/27/18 09:05 Blood Type O POSITIVE 03/27/18 10:42 Blood Type Confirm O POSITIVE 03/27/18 12:10 Antibody Screen Negative 03/27/18 10:42 BBK History Checked No verified bt 03/27/18 10:42 - Hospital Course Hospital Course: 73 yo female with pmhx of diabetes and htn seen and evaluated for right open tibial fracture. Patient had slipped and fell on 03/27 and had sustained an open fracture of the right ankle. patient was taken into the OR for right ankle ORIF with primary closure. Patient denies f/n/v/sob. Patient given ancef and vanc stat x 1 dose. Lovenox 40 mg sc qd rx. Patient to continue taking the ciprofloxacin 500 mg bid x 7 days. Patient will follow up in podiatry clinic on Tuesday. Patient d/c to [facility] after physical therapy crutch trains. - Date & Time of H&P Date of H&P: 03/28/18 Time of H&P: 12:03 Discharge Exam - Head Exam Head Exam: ATRAUMATIC, NORMOCEPHALIC - Eye Exam Eye Exam: EOMI, Normal appearance Pupil Exam: PERRL - Respiratory Exam Respiratory Exam: NORMAL BREATHING PATTERN - Cardiovascular Exam Cardiovascular Exam: REGULAR RHYTHM, +S1, +S2 - GI/Abdominal Exam GI & Abdominal Exam: Unremarkable - Neurological Exam Neurological exam: Alert Discharge Plan - Follow Up Plan Condition: STABLE Disposition: HOME/ ROUTINE Instructions: Fibula Fracture Additional Instructions: Patient will follow up in podiatry clinic on Tuesday in [facility]. Please call to make an appointment. Referrals: Lion Shaw DPM [Staff Provider] -
--- NOTE | 2018-03-28 12:52 | CP.PCM.PN ---
Subjective - Date & Time of Evaluation Date of Evaluation: 03/28/18 Time of Evaluation: 12:50 - Subjective Subjective: 73 yo female with pmhx of diabetes, htn seen in the ED for right open tibial fracture. Patient is seen with her two daughters at bedside AAOx3 and in NAD.Patient admits to pain to her right lower extremity but states is controlled with pain medications. Patient denies eating solid food after surgery, patient denies appeitite. Denies any other medical complains. Patient denies f/n/v/sob/cp/headaches/d/c. States she is rx aspirin 81 mg, but stopped taking it about a week ago. Objective - Vital Signs/Intake and Output Vital Signs (last 24 hours): Temp Pulse Resp BP Pulse Ox 98.7 F 76 20 119/55 L 95 03/28/18 09:23 03/28/18 10:17 03/28/18 09:23 03/28/18 10:17 03/28/18 10:17 - Medications Medications: Current Medications Acetaminophen (Tylenol 325mg Tab) 325 mg PO Q4 PRN PRN Reason: Pain, Mild (1-3) Amlodipine Besylate (Norvasc) 5 mg PO DAILY [facility] Last Admin: 03/28/18 08:31 Dose: 5 mg Atorvastatin Calcium (Lipitor) 20 mg PO HS [facility] Calcium/Vitamin D (Oyster Shell Calcium/Vitamin D 500 Mg-200 Iu) 1 tab PO BID [facility] Last Admin: 03/28/18 08:32 Dose: 1 tab Ciprofloxacin (Cipro) 500 mg PO Q12 [facility]; Protocol Enoxaparin Sodium (Lovenox) 40 mg SC DAILY [facility]; Protocol Hydrochlorothiazide (Microzide) 12.5 mg PO DAILY [facility] Last Admin: 03/28/18 08:31 Dose: 12.5 mg Losartan Potassium (Cozaar) 100 mg PO DAILY [facility] Last Admin: 03/28/18 08:36 Dose: 100 mg Metoprolol Tartrate (Lopressor) 25 mg PO DAILY PRN PRN Reason: Palpitations Oxycodone/Acetaminophen (Percocet 5/325 Mg Tab) 1 tab PO Q4 PRN PRN Reason: Pain, moderate (4-7) Stop: 03/30/18 14:42 Last Admin: 03/28/18 02:42 Dose: 1 tab Oxycodone/Acetaminophen (Percocet 5/325 Mg Tab) 2 tab PO Q4 PRN PRN Reason: Pain, severe (8-10) Stop: 03/30/18 14:42 Last Admin: 03/28/18 08:26 Dose: 2 tab Pantoprazole Sodium (Protonix Ec Tab) 40 mg PO DAILY [facility] Last Admin: 03/28/18 08:33 Dose: 40 mg Sitagliptin Phosphate (Januvia) 100 mg PO DAILY [facility] Last Admin: 03/28/18 08:34 Dose: 100 mg - Labs Labs: 03/28/18 08:13 03/28/18 08:13 PT 13.0 Seconds (9.8-13.1) 03/27/18 09:50 INR 1.1 03/27/18 09:50 - Constitutional Appears: Well, Non-toxic - Head Exam Head Exam: ATRAUMATIC - Eye Exam Eye Exam: Normal appearance Pupil Exam: NORMAL ACCOMODATION - ENT Exam ENT Exam: Mucous Membranes Moist - Respiratory Exam Respiratory Exam: Clear to Ausculation Bilateral, NORMAL BREATHING PATTERN - Cardiovascular Exam Cardiovascular Exam: REGULAR RHYTHM, +S1, +S2 - Extremities Exam Extremities Exam: Normal Capillary Refill, Normal Inspection - Neurological Exam Neurological Exam: Alert, Awake, Oriented x3 Assessment and Plan (1) Open fibular fracture Status: Acute - Assessment and Plan (Free Text) Assessment: 73 yo female seen and evaluated in the ED for right open tibial fracture . Patient slipped and fell 03/27 at home. Patient presented with an open fracture and was taken into the OR for right ankle ORIF with primary closure. Plan: 1 day s/p right ankle ORIF - right foot dressed with posterior splint and musa - morphine 2 mg in ED - Ciprofloxacin PO 500 mg BID x 7 days - chest x-ray: no active pulmonary disease - ankle x-ray and CT: right dislocated ankle with tibial and fibular fracture - Patient to be NWB and use crutches while ambulating. Diabetes Mellitus - CW home medications Hypertension -CW home medications Prophylaxis - DVT: Lovenox 40 mg SC QD Diet - NPO for surgery - Patient to be discharged to [facility] Code status: -Unknown
[2018-03-28] MEDS ORDERED: Dextrose 50% SYRINGE Inj (50 ml) IV PRN (15:36)
[2018-03-28] MEDS ORDERED: Glucagon Recombinant 1 mg Inj IM PRN (15:36)
[2018-03-28] MEDS: Enoxaparin 40 mg Syringe SC SCH (16:11)
[2018-03-28] MEDS: Insulin Lispro (humaLOG) 100 Units/ml Inj SC SCH ×2 (19:00→22:24)
[2018-03-29] MEDS: Oxycodone/Acetaminophen 5/325 mg Tab PO PRN ×2 (05:11→15:10)
[2018-03-29 05:45] LABS: BASO % 0.4 % (0.0-2.0); EOS # 0.1 K/uL (0.0-0.7); EOS % 1.3 % (0.0-4.0); HEMOGLOBIN 10.4 g/dL (12.0-16.0); LYMPH # 1.4 K/uL (1.0-4.3); LYMPH % 16.3 % (20.0-40.0); MEAN CELL VOLUME 88.5 fl (81.0-99.0); MEAN CORPUSCULAR HEMOGLOBIN 29.5 pg (27.0-31.0); MEAN CORPUSCULAR HGB CONC 33.3 g/dL (33.0-37.0); MEAN PLATELET VOLUME 9.5 fl (7.2-11.7); MONO # 1.1 K/uL (0.0-0.8); MONO % 12.1 % (0.0-10.0); NEUT # 6.1 K/uL (1.8-7.0); NEUT % 69.9 % (50.0-75.0); RBC 3.53 Mil/uL (3.80-5.20); RED CELL DISTRIBUTION WIDTH 13.7 % (11.5-14.5); WHITE BLOOD COUNT 8.7 K/uL (4.8-10.8)
[2018-03-29] MEDS: Enoxaparin 40 mg Syringe SC SCH (08:57)
[2018-03-29] MEDS: Calcium-Vit D 500 mg-200 Units Tab UD PO SCH ×2 (08:58→16:42)
[2018-03-29] MEDS: Pantoprazole 40 mg EC Tab PO SCH (08:59)
[2018-03-29] MEDS: Insulin Lispro (humaLOG) 100 Units/ml Inj SC SCH ×4 (09:01→22:34)
[2018-03-29 10:28] LABS: SQUAMOUS EPITHIAL 4 /hpf (0-5); URINE BILIRUBIN NEGATIVE (NEGATIVE); URINE BLOOD NEGATIVE (NEGATIVE); URINE CLARITY SLIGHTY-CLOUDY (Clear); URINE COLOR YELLOW (YELLOW); URINE GLUCOSE (UA) 50 mg/dL (NEGATIVE); URINE LEUKOCYTE ESTERASE TRACE Leu/uL (Negative); URINE PROTEIN 30 mg/dL (NEGATIVE); URINE UROBILINOGEN 0.2-1.0 mg/dL (0.2-1.0)
--- NOTE | 2018-03-29 11:02 | RAD ---
Date of service: 03/29/2018 PROCEDURE: CHEST RADIOGRAPH, 1 VIEW HISTORY: fever COMPARISON: 03/27/2018 FINDINGS: LUNGS: Clear. PLEURA: No pneumothorax or pleural fluid seen. CARDIOVASCULAR: Probably presence of aortic atherosclerotic calcification on x-ray. The heart size is probably top-normal. No pulmonary venous congestion OSSEOUS STRUCTURES: Bilateral shoulder arthrosis. Thoracic spondylosis. VISUALIZED UPPER ABDOMEN: Normal. OTHER FINDINGS: None. IMPRESSION: No consolidative infiltrate to suggest pneumonia. Other findings as above.
--- NOTE | 2018-03-29 12:38 | CP.PCM.PN ---
Subjective - Date & Time of Evaluation Date of Evaluation: 03/29/18 Time of Evaluation: 12:36 - Subjective Subjective: 73 yo female with pmhx of diabetes, htn seen in the ED for right open tibial fracture. Patient is AAOx3 and in NAD.Patient admits to pain to her right lower extremity but states is controlled with pain medications. Denies any other medic al complains. Patient denies f/n/v/sob/cp/headaches/d/c. Objective - Vital Signs/Intake and Output Vital Signs (last 24 hours): Temp Pulse Resp BP Pulse Ox 98.6 F 81 20 112/65 98 03/29/18 12:20 03/29/18 12:20 03/29/18 12:20 03/29/18 12:20 03/29/18 12:20 - Medications Medications: Current Medications Acetaminophen (Tylenol 325mg Tab) 325 mg PO Q4 PRN PRN Reason: Pain, Mild (1-3) Amlodipine Besylate (Norvasc) 5 mg PO DAILY [facility] Last Admin: 03/28/18 08:31 Dose: 5 mg Atorvastatin Calcium (Lipitor) 20 mg PO HS [facility] Last Admin: 03/28/18 21:03 Dose: 20 mg Calcium/Vitamin D (Oyster Shell Calcium/Vitamin D 500 Mg-200 Iu) 1 tab PO BID [facility] Last Admin: 03/29/18 08:58 Dose: 1 tab Dextrose (Dextrose 50% Inj) 0 ml IV STAT PRN; Protocol PRN Reason: Hypoglycemia Protocol Dextrose (Glutose 15) 0 gm PO ONCE PRN; Protocol PRN Reason: Hypoglycemia Protocol Docusate Sodium (Colace) 100 mg PO BID [facility] Last Admin: 03/29/18 08:58 Dose: 100 mg Enoxaparin Sodium (Lovenox) 40 mg SC DAILY [facility]; Protocol Last Admin: 03/29/18 08:57 Dose: 40 mg Glucagon (Glucagen Diagnostic Kit) 0 mg IM STAT PRN; Protocol PRN Reason: Hypoglycemia Protocol Hydrochlorothiazide (Microzide) 12.5 mg PO DAILY [facility] Last Admin: 03/28/18 08:31 Dose: 12.5 mg Insulin Human Lispro (Humalog) 0 units SC [facility]; Protocol Last Admin: 03/29/18 09:01 Dose: 1 units Losartan Potassium (Cozaar) 100 mg PO DAILY [facility] Last Admin: 03/28/18 08:36 Dose: 100 mg Metoprolol Tartrate (Lopressor) 25 mg PO DAILY PRN PRN Reason: Palpitations Oxycodone/Acetaminophen (Percocet 5/325 Mg Tab) 1 tab PO Q4 PRN PRN Reason: Pain, moderate (4-7) Stop: 03/30/18 14:42 Last Admin: 03/28/18 15:12 Dose: 1 tab Oxycodone/Acetaminophen (Percocet 5/325 Mg Tab) 2 tab PO Q4 PRN PRN Reason: Pain, severe (8-10) Stop: 03/30/18 14:42 Last Admin: 03/29/18 05:11 Dose: 2 tab Pantoprazole Sodium (Protonix Ec Tab) 40 mg PO DAILY [facility] Last Admin: 03/29/18 08:59 Dose: 40 mg Sitagliptin Phosphate (Januvia) 100 mg PO DAILY [facility] Last Admin: 03/29/18 08:59 Dose: 100 mg - Labs Labs: 03/29/18 04:25 03/28/18 08:13 PT 13.0 Seconds (9.8-13.1) 03/27/18 09:50 INR 1.1 03/27/18 09:50 - Constitutional Appears: Well, Non-toxic, No Acute Distress - Head Exam Head Exam: ATRAUMATIC, NORMOCEPHALIC - Eye Exam Eye Exam: EOMI, Normal appearance Pupil Exam: NORMAL ACCOMODATION - ENT Exam ENT Exam: Mucous Membranes Moist - Neck Exam Neck Exam: Normal Inspection - Cardiovascular Exam Cardiovascular Exam: REGULAR RHYTHM, +S1, +S2 - GI/Abdominal Exam GI & Abdominal Exam: Normal Bowel Sounds - Neurological Exam Neurological Exam: Alert, Awake - Psychiatric Exam Psychiatric exam: Normal Affect - Skin Skin Exam: Normal Color Assessment and Plan (1) Open fibular fracture Status: Acute - Assessment and Plan (Free Text) Assessment: 73 yo female seen and evaluated in the ED for right open tibial fracture . Patient slipped and fell 03/27 at home. Patient presented with an open fracture and was taken into the OR for right ankle ORIF with primary closure. Plan: 2 day s/p right ankle ORIF - right foot dressed with posterior splint and musa - morphine 2 mg in ED - Ciprofloxacin PO 500 mg BID x 7 days - Podiatry on board; patient cleared for discharge - chest x-ray: no active pulmonary disease - ankle x-ray and CT: right dislocated ankle with tibial and fibular fracture - Patient to be NWB and use crutches while ambulating. - Low grade fever 100.6 03/28 - UA: normal - f/u Blood cx - CXR: no signs of pneumonia Diabetes Mellitus - CW home medications Hypertension -CW home medications Prophylaxis - DVT: Lovenox 40 mg SC QD Diet - Heart healthy diet - Patient to be discharged to [facility]; waiting for approval from insurance company Code status: -Unknown
--- NOTE | 2018-03-29 13:00 | OP ---
PROCEDURE DATE: 03/27/2018 PREOPERATIVE DIAGNOSES: Right ankle open and displaced fracture of tibia and fibula. POSTOPERATIVE DIAGNOSES: Right ankle open and displaced fracture of tibia and fibula. PROCEDURE PERFORMED: Right ankle open reduction with internal fixation and debridement of nonviable tissues. SURGEON: Lion Shaw DPM. AERIAL PLANTING AND CULTIVATION MANAGER: Michelle Munoz DPM., Dr. Hernandez, PGY-3, Dr. Sanchez, PGY-2. ANESTHESIOLOGIST: Dr. Guevara. ANESTHESIA: IV sedation with local. INDICATIONS: The patient is a 73-year-old female with the above-mentioned diagnosis. The patient has exhausted multiple forms of conservative treatment and now requires surgical intervention. The patient signed the consent after careful explanation of risks, benefits and complications and alternatives for surgical procedure. No guarantees were given nor implied. NPO status was confirmed prior to bringing the patient to the operating room. The patient was brought into the operating room and placed on the operating room table in the supine position. Timeout was performed for identification of the correct patient and procedure. After induction of general anesthesia, a manual closed reduction of the right ankle was performed in order to gain realignment of the ankle mortise with the use of the traction. Manual manipulation of the soft tissues and reduction of the deformity into its proper position was performed at that time. Then the right foot and ankle were then prepped and draped in normal sterile manner. The patient's right ankle was then exsanguinated with elevation and the pneumatic thigh tourniquet was inflated to 350 mmHg and the procedure begun. DESCRIPTION OF PROCEDURE: Attention was directed to the medial aspect of the right ankle where a 4 cm x 5 cm open wound was noted with a medial malleolus exposed. Using a pulse lavage system of 3 liters of saline mixed with bacitracin, the medial wound site was copiously irrigated with pulse lavage solution. Next, attention was turned to the lateral aspect of the right ankle where the fracture was present. At this time via the use of #15 blade an approximately 8 cm length linear incision was created over the lateral aspect of the fibula of the right lower extremity. The incision was carried from proximal to distal down to the level of the malleolus. Upon completion of the incision, all neurovascular structures were retracted, ligated and bovied as necessary. The incision was carried down through the subcutaneous tissue with care being taken to identify and retract all vital neurovascular structures. At this time, the incision was made down to the level of the periosteal tissue with the use of a marquis elevator. The periosteum was dissected free of its osseous attachments and reflected medially and laterally thus exposing a high fibular comminuted fracture that was present at this level in a spiral oblique nature with multiple fracture fragments present. Upon dissection of this surrounding soft tissue from the fracture site, the fracture fragments were distracted distally and the bone curette was utilized to clean and remove hemorrhagic tissue and coagulated blood from the fracture site. The surgical site was then copiously irrigated with normal sterile saline. At this time, with the use of multiple bone clamps, distal and proximal distraction, the fracture was placed in an anatomical corrected position with noted increased length of the fibula and anabaptist of the ankle mortise. Upon establishment of correct length of the fibula, the fractures were clamped with multiple bone clamps. At this time three lag screws were placed across the fracture site in order to allow for interfragmentary screw fixation and compression using standard AO principles and techniques where a Synthes 2.7 x 16 mm screw, then one with a 3.5 x 22 mm cortical screw. Upon completion of this procedure, the bone clamp was removed. It was noted that good fixation has been achieved across the fracture site. At this time a Synthes 10-hole one-third fibular plate was utilized at the anterolateral aspect of the fibula which was fixated with the use of 3.5 mm locking screws, seven screws were utilized at that time. Upon completion of the fibular reduction and fixation, the surgical site was then copiously irrigated with sterile normal saline. At this time, with the use of 2-0 and 3-0 Vicryl, the periosteum and subcutaneous tissue was reapproximated. Next with #4-0 Vicryl the subcutaneous tissue was reapproximated and with the use of 4-0 nylon, the skin was reapproximated using horizontal mattress. At this time, attention was directed to the level of the anterior aspect of the right ankle to the level of posterior malleolus where a displaced distal posterior malleolar fracture was present. At this time with the use of a #15 blade, a 1 cm linear incision was created from superior to inferior. The dissection was carried down through subcutaneous tissue with care being taken to identify and retract all vital neurovascular structures. Under C-arm guidance a K wire was then directed from anterior to posterior to grab the posterior fragment. Next under C-arm guidance and following standard AO principles and technique, a 4.0 cannulated Synthes 36 mm screw was inserted from anterior to posterior to reduce the posterior malleolus and restore the ankle mortise posteriorly. __range of momtion__ was performed under fluoroscopy and the fracture appeared to be reduced. Incision site was then copiously irrigated with sterile normal saline and the skin was reapproximated with 4-0 nylon. Next attention was redirected to the medial malleolus where the open wound was present. The _flexor___ retinaculum and the deltoid ligament was visualized and appeared to be avulsed off the bone with tendons exposed. Using 2-0 Vicryl, the retinacular tissues and the deltoid ligament was primarily repaired with over and over suture technique. The incision site was then copiously irrigated with sterile normal saline. The subcutaneous tissue was reapproximated with 3-0 and 4-0 Vicryl and the skin was reapproximated with 4-0 nylon. The right ankle was then injected with a total of 10 mL of 0.5% Marcaine plain and dressed with the use of Xeroform, 4 x 4 gauze, Miguel, Mayo, and a posterior AO splint was applied to the right lower extremity. POSTOPERATIVE CONDITION: The patient tolerated the anesthesia and the procedure well and was escorted to the recovery room with vital signs stable and neurovascular status intact to the right lower extremity. The patient will remain in in-house and will follow up with Dr. Shaw on an outpatient basis. Michelle Munoz DPM Lion Shaw DPM [facility]
--- NOTE | 2018-03-30 07:25 | CP.PCM.PN ---
Subjective - Date & Time of Evaluation Date of Evaluation: 03/29/18 Time of Evaluation: 07:23 - Subjective Subjective: Podiatry progress note for Dr. Shaw 73 y/o female patient was seen and evaluated at bedside. Patient was AAOx3, and in NAD. Patient reports feeling much better. Patient is aware she will be going to a subacute Rehab facility. Objective - Vital Signs/Intake and Output Vital Signs (last 24 hours): Temp Pulse Resp BP Pulse Ox 98.1 F 106 H 20 133/73 96 03/30/18 06:43 03/30/18 04:33 03/30/18 04:33 03/30/18 04:33 03/30/18 04:33 - Medications Medications: Current Medications Acetaminophen (Tylenol 325mg Tab) 325 mg PO Q4 PRN PRN Reason: Pain, Mild (1-3) Amlodipine Besylate (Norvasc) 2.5 mg PO DAILY [facility] Atorvastatin Calcium (Lipitor) 20 mg PO HS [facility] Last Admin: 03/29/18 21:11 Dose: 20 mg Calcium/Vitamin D (Oyster Shell Calcium/Vitamin D 500 Mg-200 Iu) 1 tab PO BID [facility] Last Admin: 03/29/18 16:42 Dose: 1 tab Dextrose (Dextrose 50% Inj) 0 ml IV STAT PRN; Protocol PRN Reason: Hypoglycemia Protocol Dextrose (Glutose 15) 0 gm PO ONCE PRN; Protocol PRN Reason: Hypoglycemia Protocol Docusate Sodium (Colace) 100 mg PO BID [facility] Last Admin: 03/29/18 16:41 Dose: 100 mg Enoxaparin Sodium (Lovenox) 40 mg SC DAILY [facility]; Protocol Last Admin: 03/29/18 08:57 Dose: 40 mg Glucagon (Glucagen Diagnostic Kit) 0 mg IM STAT PRN; Protocol PRN Reason: Hypoglycemia Protocol Hydrochlorothiazide (Microzide) 12.5 mg PO DAILY [facility] Last Admin: 03/29/18 13:24 Dose: 12.5 mg Insulin Human Lispro (Humalog) 0 units SC [facility]; Protocol Last Admin: 03/29/18 22:34 Dose: Not Given Losartan Potassium (Cozaar) 100 mg PO DAILY [facility] Last Admin: 03/29/18 13:23 Dose: 100 mg Metoprolol Tartrate (Lopressor) 25 mg PO DAILY PRN PRN Reason: Palpitations Oxycodone/Acetaminophen (Percocet 5/325 Mg Tab) 1 tab PO Q4 PRN PRN Reason: Pain, moderate (4-7) Stop: 03/30/18 14:42 Last Admin: 03/28/18 15:12 Dose: 1 tab Oxycodone/Acetaminophen (Percocet 5/325 Mg Tab) 2 tab PO Q4 PRN PRN Reason: Pain, severe (8-10) Stop: 03/30/18 14:42 Last Admin: 03/29/18 15:10 Dose: 2 tab Pantoprazole Sodium (Protonix Ec Tab) 40 mg PO DAILY [facility] Last Admin: 03/29/18 08:59 Dose: 40 mg Sitagliptin Phosphate (Januvia) 100 mg PO DAILY [facility] Last Admin: 03/29/18 08:59 Dose: 100 mg - Labs Labs: 03/29/18 04:25 03/28/18 08:13 PT 13.0 Seconds (9.8-13.1) 03/27/18 09:50 INR 1.1 03/27/18 09:50 - Constitutional Appears: Well, Non-toxic, No Acute Distress - Head Exam Head Exam: ATRAUMATIC, NORMOCEPHALIC - Extremities Exam Additional comments: Posteiror Spint intact, clean dry, CFT less than 3 seconds X 5 - Neurological Exam Neurological Exam: Alert, Awake, Oriented x3 - Psychiatric Exam Psychiatric exam: Normal Affect, Normal Mood Assessment and Plan - Assessment and Plan (Free Text) Assessment: 73 y/o female patient seen and evaluated POD2 right ankle open fracture ORIF Plan: Patient seen and evaluated at bedside Plan discussed with attending Dr. Lea/Dr. Shaw Right Ankle X-ray:fracture dislocation of the right ankle with displaced medial malleolar fracture and comminuted oblique fracture of the distal right fibula Right CT: open comminuted displaced fracture in the distal fibula, intra- articular longitudinal non-displaced fracture in the anterior aspect of the distal epiphysis of tibia and dislocation of ankle joint Patient received Vancomycin in the ED and Ancef 1 gm in the OR Patient currently on Cipro PO 500 mg BID at this time Patient likely to be discharged to a subacute rehab facility Patient pain controlled at thius time Patient to remain NWB to the RLE in a posterior splint, and patient to be evaluated by Physical therapy for further gait training Podiatry will continue to follow patient while she is in house
[2018-03-30] MEDS: Insulin Lispro (humaLOG) 100 Units/ml Inj SC SCH ×4 (07:30→22:04)
[2018-03-30] MEDS: Enoxaparin 40 mg Syringe SC SCH (08:34)
[2018-03-30] MEDS: Calcium-Vit D 500 mg-200 Units Tab UD PO SCH ×2 (08:36→17:34)
[2018-03-30] MEDS: Pantoprazole 40 mg EC Tab PO SCH (08:36)
--- NOTE | 2018-03-30 08:48 | CP.PCM.PN ---
Subjective - Date & Time of Evaluation Date of Evaluation: 03/30/18 Time of Evaluation: 08:41 - Subjective Subjective: Podiatry progress note for Dr. Shaw 73 y/o female patient was seen and evaluated at bedside. Patient was AAOx3, and in NAD. Patient reports feeling much better. Patient is aware she will be going to a subacute Rehab facility. Objective - Vital Signs/Intake and Output Vital Signs (last 24 hours): Temp Pulse Resp BP Pulse Ox 98.9 F 94 H 18 122/61 98 03/30/18 08:21 03/30/18 08:21 03/30/18 08:21 03/30/18 08:21 03/30/18 08:21 - Medications Medications: Current Medications Acetaminophen (Tylenol 325mg Tab) 325 mg PO Q4 PRN PRN Reason: Pain, Mild (1-3) Amlodipine Besylate (Norvasc) 2.5 mg PO DAILY [facility] Last Admin: 03/30/18 08:35 Dose: 2.5 mg Atorvastatin Calcium (Lipitor) 20 mg PO HS [facility] Last Admin: 03/29/18 21:11 Dose: 20 mg Calcium/Vitamin D (Oyster Shell Calcium/Vitamin D 500 Mg-200 Iu) 1 tab PO BID [facility] Last Admin: 03/30/18 08:36 Dose: 1 tab Dextrose (Dextrose 50% Inj) 0 ml IV STAT PRN; Protocol PRN Reason: Hypoglycemia Protocol Dextrose (Glutose 15) 0 gm PO ONCE PRN; Protocol PRN Reason: Hypoglycemia Protocol Docusate Sodium (Colace) 100 mg PO BID [facility] Last Admin: 03/30/18 08:33 Dose: 100 mg Enoxaparin Sodium (Lovenox) 40 mg SC DAILY [facility]; Protocol Last Admin: 03/30/18 08:34 Dose: 40 mg Glucagon (Glucagen Diagnostic Kit) 0 mg IM STAT PRN; Protocol PRN Reason: Hypoglycemia Protocol Hydrochlorothiazide (Microzide) 12.5 mg PO DAILY [facility] Last Admin: 03/30/18 08:35 Dose: 12.5 mg Vancomycin HCl 1 gm/ Sodium (Chloride) 250 mls @ 166.667 mls/hr IVPB ONCE ONE; Protocol Stop: 03/30/18 09:56 Piperacillin Sod/Tazobactam (Sod 3.375 gm/ Sodium Chloride) 100 mls @ 100 mls/hr IVPB Q6 [facility]; Protocol Insulin Human Lispro (Humalog) 0 units SC [facility]; Protocol Last Admin: 03/29/18 22:34 Dose: Not Given Losartan Potassium (Cozaar) 100 mg PO DAILY [facility] Last Admin: 03/30/18 08:34 Dose: 100 mg Metoprolol Tartrate (Lopressor) 25 mg PO DAILY PRN PRN Reason: Palpitations Oxycodone/Acetaminophen (Percocet 5/325 Mg Tab) 1 tab PO Q4 PRN PRN Reason: Pain, moderate (4-7) Stop: 03/30/18 14:42 Last Admin: 03/28/18 15:12 Dose: 1 tab Oxycodone/Acetaminophen (Percocet 5/325 Mg Tab) 2 tab PO Q4 PRN PRN Reason: Pain, severe (8-10) Stop: 03/30/18 14:42 Last Admin: 03/29/18 15:10 Dose: 2 tab Pantoprazole Sodium (Protonix Ec Tab) 40 mg PO DAILY [facility] Last Admin: 03/30/18 08:36 Dose: 40 mg Sitagliptin Phosphate (Januvia) 100 mg PO DAILY [facility] Last Admin: 03/30/18 08:34 Dose: 100 mg - Labs Labs: 03/29/18 04:25 03/28/18 08:13 PT 13.0 Seconds (9.8-13.1) 03/27/18 09:50 INR 1.1 03/27/18 09:50 - Constitutional Appears: Well, Non-toxic, No Acute Distress - Head Exam Head Exam: ATRAUMATIC, NORMOCEPHALIC - Extremities Exam Additional comments: Splint intact- CFT less than 3 seconds X 5 - Neurological Exam Neurological Exam: Alert, Awake, Oriented x3 - Psychiatric Exam Psychiatric exam: Normal Affect, Normal Mood Assessment and Plan - Assessment and Plan (Free Text) Assessment: 73 y/o female patient seen and evaluated POD3 right ankle open fracture ORIF Plan: Patient seen and evaluated at bedside Plan discussed with attending Dr. Lea/Dr. Shaw Right Ankle X-ray:fracture dislocation of the right ankle with displaced medial malleolar fracture and comminuted oblique fracture of the distal right fibula Right CT: open comminuted displaced fracture in the distal fibula, intra- articular longitudinal non-displaced fracture in the anterior aspect of the distal epiphysis of tibia and dislocation of ankle joint Patient received Vancomycin in the ED and Ancef 1 gm in the OR Patient currently on Cipro PO 500 mg BID at this time Patient likely to be discharged to a subacute rehab facility Patient pain controlled at this time Patient to remain NWB to the RLE in a posterior splint, and patient to be evaluated by Physical therapy for further gait training Podiatry will continue to follow patient while she is in house
--- NOTE | 2018-03-30 09:23 | CP.PCM.PN ---
Subjective - Date & Time of Evaluation Date of Evaluation: 03/30/18 Time of Evaluation: 09:20 - Subjective Subjective: 73 yo female with pmhx of diabetes, htn seen at bedside for right open tibial fracture. Patient is s/p 3 days right ankle ORIF. Patient is AAOx3 and in NAD.Patient admits to pain to her right lower extremity but states is controlled with pain medications. Denies any other medical complains. Patient admits to low grade fever last night. Denies n/v/sob/cp/headaches/d/c. Objective - Vital Signs/Intake and Output Vital Signs (last 24 hours): Temp Pulse Resp BP Pulse Ox 98.9 F 94 H 18 122/61 98 03/30/18 08:21 03/30/18 08:21 03/30/18 08:21 03/30/18 08:21 03/30/18 08:21 - Medications Medications: Current Medications Acetaminophen (Tylenol 325mg Tab) 325 mg PO Q4 PRN PRN Reason: Pain, Mild (1-3) Amlodipine Besylate (Norvasc) 2.5 mg PO DAILY [facility] Last Admin: 03/30/18 08:35 Dose: 2.5 mg Atorvastatin Calcium (Lipitor) 20 mg PO HS [facility] Last Admin: 03/29/18 21:11 Dose: 20 mg Calcium/Vitamin D (Oyster Shell Calcium/Vitamin D 500 Mg-200 Iu) 1 tab PO BID [facility] Last Admin: 03/30/18 08:36 Dose: 1 tab Dextrose (Dextrose 50% Inj) 0 ml IV STAT PRN; Protocol PRN Reason: Hypoglycemia Protocol Dextrose (Glutose 15) 0 gm PO ONCE PRN; Protocol PRN Reason: Hypoglycemia Protocol Docusate Sodium (Colace) 100 mg PO BID [facility] Last Admin: 03/30/18 08:33 Dose: 100 mg Enoxaparin Sodium (Lovenox) 40 mg SC DAILY [facility]; Protocol Last Admin: 03/30/18 08:34 Dose: 40 mg Glucagon (Glucagen Diagnostic Kit) 0 mg IM STAT PRN; Protocol PRN Reason: Hypoglycemia Protocol Hydrochlorothiazide (Microzide) 12.5 mg PO DAILY [facility] Last Admin: 03/30/18 08:35 Dose: 12.5 mg Vancomycin HCl 1 gm/ Sodium (Chloride) 250 mls @ 166.667 mls/hr IVPB ONCE ONE; Protocol Stop: 03/30/18 09:56 Piperacillin Sod/Tazobactam (Sod 3.375 gm/ Sodium Chloride) 100 mls @ 100 mls/hr IVPB Q6 [facility]; Protocol Insulin Human Lispro (Humalog) 0 units SC ACHS [facility]; Protocol Last Admin: 03/29/18 22:34 Dose: Not Given Losartan Potassium (Cozaar) 100 mg PO DAILY [facility] Last Admin: 03/30/18 08:34 Dose: 100 mg Metoprolol Tartrate (Lopressor) 25 mg PO DAILY PRN PRN Reason: Palpitations Oxycodone/Acetaminophen (Percocet 5/325 Mg Tab) 1 tab PO Q4 PRN PRN Reason: Pain, moderate (4-7) Stop: 03/30/18 14:42 Last Admin: 03/28/18 15:12 Dose: 1 tab Oxycodone/Acetaminophen (Percocet 5/325 Mg Tab) 2 tab PO Q4 PRN PRN Reason: Pain, severe (8-10) Stop: 03/30/18 14:42 Last Admin: 03/29/18 15:10 Dose: 2 tab Pantoprazole Sodium (Protonix Ec Tab) 40 mg PO DAILY [facility] Last Admin: 03/30/18 08:36 Dose: 40 mg Sitagliptin Phosphate (Januvia) 100 mg PO DAILY [facility] Last Admin: 03/30/18 08:34 Dose: 100 mg - Labs Labs: 03/29/18 04:25 03/28/18 08:13 PT 13.0 Seconds (9.8-13.1) 03/27/18 09:50 INR 1.1 03/27/18 09:50 - Constitutional Appears: Well, Non-toxic, No Acute Distress - Head Exam Head Exam: ATRAUMATIC, NORMOCEPHALIC - Eye Exam Eye Exam: EOMI, Normal appearance Pupil Exam: NORMAL ACCOMODATION - ENT Exam ENT Exam: Mucous Membranes Moist - Neck Exam Neck Exam: Normal Inspection - Respiratory Exam Respiratory Exam: Clear to Ausculation Bilateral, NORMAL BREATHING PATTERN - Cardiovascular Exam Cardiovascular Exam: REGULAR RHYTHM, +S1, +S2 - Neurological Exam Neurological Exam: Alert, Awake - Psychiatric Exam Psychiatric exam: Normal Affect - Skin Skin Exam: Normal Color Assessment and Plan (1) Open fibular fracture Status: Acute - Assessment and Plan (Free Text) Assessment: 73 yo female seen and evaluated in the ED for right open tibial fracture . Patient slipped and fell on 03/27 at home. Patient presented with an open fracture and was taken into the OR for right ankle ORIF with primary closure on 03/27. Patient was initially placed on ciprofloxacin for prophylaxis for 7 days. After low grade fever in the hospital, patient was switched to zosyn 3.375 q6 and vanc 1 gm stat dose x1. Plan: 3 day s/p right ankle ORIF - right foot dressed with posterior splint and musa - morphine 2 mg in ED - Ciprofloxacin PO 500 mg BID discontinued - Stat vanc 1 gm dose and 3.375 gm zosyn q6 IV - Podiatry on board; patient cleared for discharge - chest x-ray: no active pulmonary disease - ankle x-ray and CT: right dislocated ankle with tibial and fibular fracture - Patient to be NWB and use crutches while ambulating. - Low grade fever 100.6 03/28 - UA: normal - f/u Blood cx- no growth after 24 hours - CXR: no signs of pneumonia - Patient being crutch trained by physical therapy - Patient will remain in house until afebrile for 24 hours Diabetes Mellitus - CW home medications Hypertension -CW home medications Prophylaxis - DVT: Lovenox 40 mg SC QD Diet - Heart healthy diet - Patient to be discharged to [facility]; waiting for approval from insurance company Code status: -Unknown
[2018-03-30] MEDS: Piperacillin/Tazobact 3.375 GM in Sodium Chloride 0.9% 100 ML IVPB SCH ×3 (12:03→21:03)
[2018-03-31] MEDS: Piperacillin/Tazobact 3.375 GM in Sodium Chloride 0.9% 100 ML IVPB SCH ×4 (03:07→21:41)
[2018-03-31 09:14] LABS: BASO % 0.4 % (0.0-2.0); EOS # 0.1 K/uL (0.0-0.7); EOS % 1.1 % (0.0-4.0); HEMOGLOBIN 9.9 g/dL (12.0-16.0); LYMPH # 1.3 K/uL (1.0-4.3); LYMPH % 18.5 % (20.0-40.0); MEAN CELL VOLUME 88.8 fl (81.0-99.0); MEAN CORPUSCULAR HEMOGLOBIN 29.4 pg (27.0-31.0); MEAN CORPUSCULAR HGB CONC 33.1 g/dL (33.0-37.0); MEAN PLATELET VOLUME 9.1 fl (7.2-11.7); MONO # 0.7 K/uL (0.0-0.8); MONO % 9.7 % (0.0-10.0); NEUT # 4.8 K/uL (1.8-7.0); NEUT % 70.3 % (50.0-75.0); NRBC % 0.1 % (0.0-0.0); RBC 3.35 Mil/uL (3.80-5.20); RED CELL DISTRIBUTION WIDTH 13.6 % (11.5-14.5); WHITE BLOOD COUNT 6.8 K/uL (4.8-10.8)
[2018-03-31 09:29] LABS: BLOOD UREA NITROGEN 15 mg/dl (7-17); CALCIUM 8.7 mg/dL (8.4-10.2); GFR NON-AFRICAN AMERICAN > 60
[2018-03-31] MEDS: Calcium-Vit D 500 mg-200 Units Tab UD PO SCH ×2 (09:32→16:12)
[2018-03-31] MEDS: Enoxaparin 40 mg Syringe SC SCH (09:32)
[2018-03-31] MEDS: Pantoprazole 40 mg EC Tab PO SCH (09:36)
[2018-03-31] MEDS: Insulin Lispro (humaLOG) 100 Units/ml Inj SC SCH ×4 (09:38→22:00)
--- NOTE | 2018-03-31 11:20 | CP.PCM.PN ---
Subjective - Date & Time of Evaluation Date of Evaluation: 03/31/18 Time of Evaluation: 11:18 - Subjective Subjective: 73 yo female with pmhx of diabetes, htn seen at bedside for right open tibial fracture. Patient is s/p 4 days right ankle ORIF. Patient is AAOx3 and in NAD.Patient admits to pain to her right lower extremity but states is controlled with pain medications. Denies any other medical complains. Denies f/n/v/sob/cp/headaches/d/c. Objective - Vital Signs/Intake and Output Vital Signs (last 24 hours): Temp Pulse Resp BP Pulse Ox 98.5 F 69 20 136/72 99 03/31/18 08:52 03/31/18 08:52 03/31/18 08:52 03/31/18 08:52 03/31/18 08:52 - Medications Medications: Current Medications Acetaminophen (Tylenol 325mg Tab) 325 mg PO Q4 PRN PRN Reason: Pain, Mild (1-3) Last Admin: 03/31/18 01:42 Dose: 325 mg Amlodipine Besylate (Norvasc) 2.5 mg PO DAILY [facility] Last Admin: 03/31/18 09:35 Dose: 2.5 mg Atorvastatin Calcium (Lipitor) 20 mg PO HS [facility] Last Admin: 03/30/18 21:04 Dose: 20 mg Calcium/Vitamin D (Oyster Shell Calcium/Vitamin D 500 Mg-200 Iu) 1 tab PO BID [facility] Last Admin: 03/31/18 09:32 Dose: 1 tab Dextrose (Dextrose 50% Inj) 0 ml IV STAT PRN; Protocol PRN Reason: Hypoglycemia Protocol Dextrose (Glutose 15) 0 gm PO ONCE PRN; Protocol PRN Reason: Hypoglycemia Protocol Docusate Sodium (Colace) 100 mg PO BID [facility] Last Admin: 03/31/18 09:33 Dose: 100 mg Enoxaparin Sodium (Lovenox) 40 mg SC DAILY [facility]; Protocol Last Admin: 03/31/18 09:32 Dose: 40 mg Glucagon (Glucagen Diagnostic Kit) 0 mg IM STAT PRN; Protocol PRN Reason: Hypoglycemia Protocol Hydrochlorothiazide (Microzide) 12.5 mg PO DAILY [facility] Last Admin: 03/31/18 09:35 Dose: 12.5 mg Piperacillin Sod/Tazobactam (Sod 3.375 gm/ Sodium Chloride) 100 mls @ 100 mls/hr IVPB Q6 [facility]; Protocol Last Admin: 03/31/18 09:36 Dose: 100 mls/hr Insulin Human Lispro (Humalog) 0 units SC ACHS [facility]; Protocol Last Admin: 03/31/18 09:38 Dose: 1 units Losartan Potassium (Cozaar) 100 mg PO DAILY [facility] Last Admin: 03/31/18 09:35 Dose: 100 mg Metoprolol Tartrate (Lopressor) 25 mg PO DAILY PRN PRN Reason: Palpitations Pantoprazole Sodium (Protonix Ec Tab) 40 mg PO DAILY [facility] Last Admin: 03/31/18 09:36 Dose: 40 mg Sitagliptin Phosphate (Januvia) 100 mg PO DAILY [facility] Last Admin: 03/31/18 09:35 Dose: 100 mg - Labs Labs: 03/31/18 09:00 03/31/18 09:00 PT 13.0 Seconds (9.8-13.1) 03/27/18 09:50 INR 1.1 03/27/18 09:50 - Constitutional Appears: Well, Non-toxic - Head Exam Head Exam: ATRAUMATIC, NORMOCEPHALIC - Eye Exam Eye Exam: EOMI, Normal appearance Pupil Exam: NORMAL ACCOMODATION - ENT Exam ENT Exam: Mucous Membranes Moist - Respiratory Exam Respiratory Exam: Clear to Ausculation Bilateral, NORMAL BREATHING PATTERN - Cardiovascular Exam Cardiovascular Exam: REGULAR RHYTHM, +S1, +S2 - GI/Abdominal Exam GI & Abdominal Exam: Normal Bowel Sounds - Rectal Exam Rectal Exam: NORMAL INSPECTION - Neurological Exam Neurological Exam: Alert, Awake - Psychiatric Exam Psychiatric exam: Normal Affect Assessment and Plan (1) Open fibular fracture Status: Acute - Assessment and Plan (Free Text) Assessment: 73 yo female seen and evaluated in the ED for right open tibial fracture . Patient slipped and fell on 03/27 at home. Patient presented with an open fracture and was taken into the OR for right ankle ORIF with primary closure on 03/27. Patient was initially placed on ciprofloxacin for prophylaxis for 7 days. After low grade fever in the hospital, patient was switched to zosyn 3.375 q6 and vanc 1 gm stat dose x1. Plan: 4 day s/p right ankle ORIF - right foot dressed with posterior splint and musa - morphine 2 mg in ED - Ciprofloxacin PO 500 mg BID discontinued - Stat vanc 1 gm dose and 3.375 gm zosyn q6 IV - Podiatry on board; patient cleared for discharge - chest x-ray: no active pulmonary disease - ankle x-ray and CT: right dislocated ankle with tibial and fibular fracture - Patient to be NWB and use crutches while ambulating. - Low grade fever 100.6 03/28 - UA: normal - f/u Blood cx- no growth after 24 hours - CXR: no signs of pneumonia - Patient being crutch trained by physical therapy - Patient stable for discharge Diabetes Mellitus - CW home medications Hypertension -CW home medications Prophylaxis - DVT: Lovenox 40 mg SC QD Diet - Heart healthy diet - Patient to be discharged to [facility]; waiting for approval from insurance company Code status: -Unknown
[2018-04-01] MEDS: Piperacillin/Tazobact 3.375 GM in Sodium Chloride 0.9% 100 ML IVPB SCH ×3 (03:01→15:51)
[2018-04-01] MEDS: Insulin Lispro (humaLOG) 100 Units/ml Inj SC SCH ×3 (07:02→16:50)
[2018-04-01 07:16] LABS: BASO % 0.4 % (0.0-2.0); EOS # 0.1 K/uL (0.0-0.7); EOS % 1.4 % (0.0-4.0); HEMOGLOBIN 9.8 g/dL (12.0-16.0); LYMPH # 1.4 K/uL (1.0-4.3); LYMPH % 23.5 % (20.0-40.0); MEAN CELL VOLUME 90.5 fl (81.0-99.0); MEAN CORPUSCULAR HEMOGLOBIN 29.7 pg (27.0-31.0); MEAN CORPUSCULAR HGB CONC 32.8 g/dL (33.0-37.0); MEAN PLATELET VOLUME 8.8 fl (7.2-11.7); MONO # 0.7 K/uL (0.0-0.8); MONO % 11.4 % (0.0-10.0); NEUT # 3.9 K/uL (1.8-7.0); NEUT % 63.3 % (50.0-75.0); NRBC % 0.1 % (0.0-0.0); RBC 3.31 Mil/uL (3.80-5.20); RED CELL DISTRIBUTION WIDTH 13.4 % (11.5-14.5); WHITE BLOOD COUNT 6.1 K/uL (4.8-10.8)
--- NOTE | 2018-04-01 08:29 | CP.PCM.PN ---
Subjective - Date & Time of Evaluation Date of Evaluation: 04/01/18 Time of Evaluation: 08:22 - Subjective Subjective: Podiatry progress note for Dr. Shaw 73 y/o female patient seen and evaluated at the bedside 5 days S/P right ankle open fracture ORIF. Patient was AAOx3, and in NAD. Patient reports feeling much better. Patient states that her pain is well controlled now. Patient denies any overnight F/N/V/C or SOB. She denies any other pedal complaint at this time.. Patient is aware she will be going to a subacute Rehab facility. Objective - Vital Signs/Intake and Output Vital Signs (last 24 hours): Temp Pulse Resp BP Pulse Ox 98.9 F 79 16 121/72 95 04/01/18 04:12 04/01/18 04:12 04/01/18 04:12 04/01/18 04:12 04/01/18 04:12 - Medications Medications: Current Medications Acetaminophen (Tylenol 325mg Tab) 325 mg PO Q4 PRN PRN Reason: Pain, Mild (1-3) Last Admin: 03/31/18 12:36 Dose: 325 mg Amlodipine Besylate (Norvasc) 2.5 mg PO DAILY [facility] Last Admin: 03/31/18 09:35 Dose: 2.5 mg Atorvastatin Calcium (Lipitor) 20 mg PO HS [facility] Last Admin: 03/31/18 22:30 Dose: 20 mg Calcium/Vitamin D (Oyster Shell Calcium/Vitamin D 500 Mg-200 Iu) 1 tab PO BID [facility] Last Admin: 03/31/18 16:12 Dose: 1 tab Dextrose (Dextrose 50% Inj) 0 ml IV STAT PRN; Protocol PRN Reason: Hypoglycemia Protocol Dextrose (Glutose 15) 0 gm PO ONCE PRN; Protocol PRN Reason: Hypoglycemia Protocol Docusate Sodium (Colace) 100 mg PO BID [facility] Last Admin: 03/31/18 16:12 Dose: 100 mg Enoxaparin Sodium (Lovenox) 40 mg SC DAILY [facility]; Protocol Last Admin: 03/31/18 09:32 Dose: 40 mg Glucagon (Glucagen Diagnostic Kit) 0 mg IM STAT PRN; Protocol PRN Reason: Hypoglycemia Protocol Hydrochlorothiazide (Microzide) 12.5 mg PO DAILY [facility] Last Admin: 03/31/18 09:35 Dose: 12.5 mg Piperacillin Sod/Tazobactam (Sod 3.375 gm/ Sodium Chloride) 100 mls @ 100 mls/hr IVPB Q6 [facility]; Protocol Last Admin: 04/01/18 03:01 Dose: 100 mls/hr Insulin Human Lispro (Humalog) 0 units SC ACHS [facility]; Protocol Last Admin: 04/01/18 07:02 Dose: 1 units Losartan Potassium (Cozaar) 100 mg PO DAILY [facility] Last Admin: 03/31/18 09:35 Dose: 100 mg Metoprolol Tartrate (Lopressor) 25 mg PO DAILY PRN PRN Reason: Palpitations Pantoprazole Sodium (Protonix Ec Tab) 40 mg PO DAILY [facility] Last Admin: 03/31/18 09:36 Dose: 40 mg Sitagliptin Phosphate (Januvia) 100 mg PO DAILY [facility] Last Admin: 03/31/18 09:35 Dose: 100 mg - Labs Labs: 04/01/18 05:30 03/31/18 09:00 PT 13.0 Seconds (9.8-13.1) 03/27/18 09:50 INR 1.1 03/27/18 09:50 - Constitutional Appears: Well, Non-toxic, No Acute Distress - Head Exam Head Exam: ATRAUMATIC, NORMOCEPHALIC - Extremities Exam Additional comments: R LE focused exam: R bi-valved cast looks C/D/I and in place: Vasc: Cap. refill < 3 sec to all digits. Neuro: Gross and protective sensations are intact. MSK: Patient can perform active ROM with her toes. - Neurological Exam Neurological Exam: Alert, Awake, Oriented x3 - Psychiatric Exam Psychiatric exam: Normal Affect, Normal Mood Assessment and Plan - Assessment and Plan (Free Text) Assessment: 73 y/o female patient seen and evaluated 5 days S/P right ankle open fracture ORIF Plan: Patient seen and evaluated at bedside Plan discussed with attending Dr. Shaw Right Ankle X-ray:fracture dislocation of the right ankle with displaced medial malleolar fracture and comminuted oblique fracture of the distal right fibula Right CT: open comminuted displaced fracture in the distal fibula, intra- articular longitudinal non-displaced fracture in the anterior aspect of the dis bobbi epiphysis of tibia and dislocation of ankle joint Patient currently on IV Zosyn 3.375 Gm Q6. Patient likely to be discharged to a subacute rehab facility, Pending approval Patient pain is well controlled at this time Patient to remain NWB to the RLE in a Bivalved cast Patient to be evaluated by Physical therapy for further gait training. Podiatry will continue to follow up the patient while she is in house
[2018-04-01] MEDS: Enoxaparin 40 mg Syringe SC SCH (09:50)
[2018-04-01] MEDS: Calcium-Vit D 500 mg-200 Units Tab UD PO SCH ×2 (09:52→16:50)
[2018-04-01] MEDS: Pantoprazole 40 mg EC Tab PO SCH (09:52)
--- NOTE | 2018-04-01 13:20 | CP.PCM.PN ---
<Billie Sanchez - Last Filed: 04/01/18 12:57> Subjective - Date & Time of Evaluation Date of Evaluation: 04/01/18 Time of Evaluation: 07:50 - Subjective Subjective: Patient seen and examined at bedside this morning. Patient states that pain is well controlled with PRN tylenol. Eating well. Voiding without any complains. Having regular bowel movements. Denies any complains at this evaluation. Afebrile. Stable vital signs. S/P right ankle open fracture ORIF on POD#5. Awaiting of transfer to [facility]. Pending approval. Objective - Vital Signs/Intake and Output Vital Signs (last 24 hours): Temp Pulse Resp BP Pulse Ox 98.9 F 69 16 126/71 95 04/01/18 04:12 04/01/18 09:51 04/01/18 04:12 04/01/18 09:51 04/01/18 04:12 - Medications Medications: Current Medications Acetaminophen (Tylenol 325mg Tab) 325 mg PO Q4 PRN PRN Reason: Pain, Mild (1-3) Last Admin: 03/31/18 12:36 Dose: 325 mg Amlodipine Besylate (Norvasc) 2.5 mg PO DAILY [facility] Last Admin: 04/01/18 09:51 Dose: 2.5 mg Atorvastatin Calcium (Lipitor) 20 mg PO HS [facility] Last Admin: 03/31/18 22:30 Dose: 20 mg Calcium/Vitamin D (Oyster Shell Calcium/Vitamin D 500 Mg-200 Iu) 1 tab PO BID [facility] Last Admin: 04/01/18 09:52 Dose: 1 tab Dextrose (Dextrose 50% Inj) 0 ml IV STAT PRN; Protocol PRN Reason: Hypoglycemia Protocol Dextrose (Glutose 15) 0 gm PO ONCE PRN; Protocol PRN Reason: Hypoglycemia Protocol Docusate Sodium (Colace) 100 mg PO BID [facility] Last Admin: 04/01/18 09:49 Dose: Not Given Enoxaparin Sodium (Lovenox) 40 mg SC DAILY [facility]; Protocol Last Admin: 04/01/18 09:50 Dose: 40 mg Glucagon (Glucagen Diagnostic Kit) 0 mg IM STAT PRN; Protocol PRN Reason: Hypoglycemia Protocol Hydrochlorothiazide (Microzide) 12.5 mg PO DAILY [facility] Last Admin: 04/01/18 09:51 Dose: 12.5 mg Piperacillin Sod/Tazobactam (Sod 3.375 gm/ Sodium Chloride) 100 mls @ 100 mls/hr IVPB Q6 [facility]; Protocol Last Admin: 04/01/18 10:06 Dose: 100 mls/hr Insulin Human Lispro (Humalog) 0 units SC ACHS [facility]; Protocol Last Admin: 04/01/18 12:22 Dose: 4 units Losartan Potassium (Cozaar) 100 mg PO DAILY [facility] Last Admin: 04/01/18 09:49 Dose: 100 mg Metoprolol Tartrate (Lopressor) 25 mg PO DAILY PRN PRN Reason: Palpitations Pantoprazole Sodium (Protonix Ec Tab) 40 mg PO DAILY [facility] Last Admin: 04/01/18 09:52 Dose: 40 mg Sitagliptin Phosphate (Januvia) 100 mg PO DAILY [facility] Last Admin: 04/01/18 09:50 Dose: 100 mg - Labs Labs: 04/01/18 05:30 03/31/18 09:00 PT 13.0 Seconds (9.8-13.1) 03/27/18 09:50 INR 1.1 03/27/18 09:50 - Constitutional Appears: Non-toxic, No Acute Distress - Eye Exam Eye Exam: Normal appearance - ENT Exam ENT Exam: Mucous Membranes Moist - Respiratory Exam Respiratory Exam: Clear to Ausculation Bilateral, NORMAL BREATHING PATTERN. absent: Rales, Rhonchi, Wheezes, Respiratory Distress - Cardiovascular Exam Cardiovascular Exam: REGULAR RHYTHM, RRR, +S1, +S2 - GI/Abdominal Exam GI & Abdominal Exam: Soft, Normal Bowel Sounds. absent: Distended, Guarding, Rigid, Tenderness - Back Exam Back Exam: NORMAL INSPECTION. absent: CVA tenderness (L), CVA tenderness (R) - Neurological Exam Neurological Exam: Alert, Awake, Oriented x3 Assessment and Plan - Assessment and Plan (Free Text) Assessment: 73 yo female seen and evaluated in the ED for right open tibial fracture. Patient slipped and fell on 03/27 at home. Patient presented with an open fracture and was taken into the OR for right ankle ORIF with primary closure on 03/27. Patient was initially placed on ciprofloxacin for prophylaxis for 7 days. After low grade fever in the hospital, patient received vanc 1 gm stat dose x 1 on 03/30/18, and started on zosyn 3.375 q6, today Day # 3. Plan is transfer to [facility]. . Pending approval. If transferred to [facility], patient will be discharged on clindamycin 300 mg 4 times a day to complete a total of 10 days of antibiotics ( zosyn Day #3 started on 03/30/18) Plan: S/P right ankle open fracture ORIF on POD #5 - right foot dressed with posterior splint and musa - morphine 2 mg in ED -c/w Zosyn 3.375 gm q6 IV on day #3, continue until transfer to [facility], then could switch to PO clindamycin 300 mg 4 times a day, to complete 10 days of antibiotic (between zosyn and clinda) - s/p Stat vanc 1 gm dose - Podiatry on board; patient cleared for discharge by podiatry - chest x-ray: no active pulmonary disease - ankle x-ray and CT on admission: right dislocated ankle with tibial and fibular fracture - Patient to be NWB and use crutches while ambulating. - Low grade fever 100.6 03/28 - UA: normal - Blood cx- no growth for 5 days, repeat BCx no growth x 3 days, and 48 hours - CXR: no signs of pneumonia - Patient being crutch trained by physical therapy - Patient stable for discharge, pending insurance approval for transfer to [facility] Diabetes Mellitus - CW home medications Hypertension -CW home medications Prophylaxis - DVT: Lovenox 40 mg SC QD Diet - Heart healthy diet - Patient to be discharged to [facility]; waiting for approval from insurance company Code status: -full code <Shayne Sparrow - Last Filed: 04/01/18 18:23> Objective - Vital Signs/Intake and Output Vital Signs (last 24 hours): Temp Pulse Resp BP Pulse Ox 99.0 F 89 20 123/72 99 04/01/18 15:50 04/01/18 15:50 04/01/18 15:50 04/01/18 15:50 04/01/18 15:50 - Medications Medications: Current Medications Acetaminophen (Tylenol 325mg Tab) 325 mg PO Q4 PRN PRN Reason: Pain, Mild (1-3) Last Admin: 03/31/18 12:36 Dose: 325 mg Amlodipine Besylate (Norvasc) 2.5 mg PO DAILY [facility] Last Admin: 04/01/18 09:51 Dose: 2.5 mg Atorvastatin Calcium (Lipitor) 20 mg PO HS [facility] Last Admin: 03/31/18 22:30 Dose: 20 mg Calcium/Vitamin D (Oyster Shell Calcium/Vitamin D 500 Mg-200 Iu) 1 tab PO BID [facility] Last Admin: 04/01/18 16:50 Dose: 1 tab Dextrose (Dextrose 50% Inj) 0 ml IV STAT PRN; Protocol PRN Reason: Hypoglycemia Protocol Dextrose (Glutose 15) 0 gm PO ONCE PRN; Protocol PRN Reason: Hypoglycemia Protocol Docusate Sodium (Colace) 100 mg PO BID [facility] Last Admin: 04/01/18 16:50 Dose: 100 mg Enoxaparin Sodium (Lovenox) 40 mg SC DAILY [facility]; Protocol Last Admin: 04/01/18 09:50 Dose: 40 mg Glucagon (Glucagen Diagnostic Kit) 0 mg IM STAT PRN; Protocol PRN Reason: Hypoglycemia Protocol Hydrochlorothiazide (Microzide) 12.5 mg PO DAILY [facility] Last Admin: 04/01/18 09:51 Dose: 12.5 mg Piperacillin Sod/Tazobactam (Sod 3.375 gm/ Sodium Chloride) 100 mls @ 100 mls/hr IVPB Q6 [facility]; Protocol Last Admin: 04/01/18 15:51 Dose: 100 mls/hr Insulin Human Lispro (Humalog) 0 units SC ACHS [facility]; Protocol Last Admin: 04/01/18 16:50 Dose: 3 units Losartan Potassium (Cozaar) 100 mg PO DAILY [facility] Last Admin: 04/01/18 09:49 Dose: 100 mg Metoprolol Tartrate (Lopressor) 25 mg PO DAILY PRN PRN Reason: Palpitations Pantoprazole Sodium (Protonix Ec Tab) 40 mg PO DAILY [facility] Last Admin: 04/01/18 09:52 Dose: 40 mg Sitagliptin Phosphate (Januvia) 100 mg PO DAILY [facility] Last Admin: 04/01/18 09:50 Dose: 100 mg - Labs Labs: 04/01/18 05:30 03/31/18 09:00 PT 13.0 Seconds (9.8-13.1) 03/27/18 09:50 INR 1.1 03/27/18 09:50 Attending/Attestation - Attestation I have personally seen and examined this patient.: Yes I have fully participated in the care of the patient.: Yes I have reviewed all pertinent clinical information, including history, physical exam and plan: Yes Notes (Text): 04/01/18 18:22 Patient seen and examined with resident. Case discussed and agreed with assessment. Patient discharged to [facility] in stable condition.
--- NOTE | 2018-04-01 14:33 | CP.PCM.DIS ---
<Billy KaporoBillie Clark - Last Filed: 04/01/18 14:28> Provider - Provider Date of Admission: 03/27/18 09:41 Attending physician: Krista Servin DO Consults: 03/27/18 23:11 Nursing Referral for Wound Care Routine Comment: Physician Instructions: Reason For Exam: s/p ORIF RIGHT ANKLE Time Spent in preparation of Discharge (in minutes): 30 Diagnosis - Discharge Diagnosis (1) Open fibular fracture Status: Acute Comment: S/P right ankle open fracture ORIF on POD #5. transfer to [facility]. (2) Hypertension Status: Chronic (3) Diabetes mellitus Status: Chronic Hospital Course - Lab Results Lab Results: Micro Results 03/29/18 10:46 Blood Blood Culture - Preliminary NO GROWTH AFTER 3 DAYS 03/27/18 09:05 Blood-Venous Blood Culture - Final NO GROWTH AFTER 5 DAYS 03/27/18 09:05 Blood-Venous Gram Stain - Final TEST NOT PERFORMED 03/30/18 05:20 Blood Blood Culture - Preliminary NO GROWTH AFTER 48 HOURS Most Recent Lab Values WBC 6.1 K/uL (4.8-10.8) 04/01/18 05:30 RBC 3.31 Mil/uL (3.80-5.20) L 04/01/18 05:30 Hgb 9.8 g/dL (12.0-16.0) L 04/01/18 05:30 Hct 29.9 % (34.0-47.0) L 04/01/18 05:30 MCV 90.5 fl (81.0-99.0) 04/01/18 05:30 MCH 29.7 pg (27.0-31.0) 04/01/18 05:30 MCHC 32.8 g/dL (33.0-37.0) L 04/01/18 05:30 RDW 13.4 % (11.5-14.5) 04/01/18 05:30 Plt Count 262 K/uL (130-400) 04/01/18 05:30 MPV 8.8 fl (7.2-11.7) 04/01/18 05:30 Neut % (Auto) 63.3 % (50.0-75.0) 04/01/18 05:30 Lymph % (Auto) 23.5 % (20.0-40.0) 04/01/18 05:30 [place] % (Auto) 11.4 % (0.0-10.0) H 04/01/18 05:30 Eos % (Auto) 1.4 % (0.0-4.0) 04/01/18 05:30 Baso % (Auto) 0.4 % (0.0-2.0) 04/01/18 05:30 Neut # (Auto) 3.9 K/uL (1.8-7.0) 04/01/18 05:30 Lymph # (Auto) 1.4 K/uL (1.0-4.3) 04/01/18 05:30 [place] # (Auto) 0.7 K/uL (0.0-0.8) 04/01/18 05:30 Eos # (Auto) 0.1 K/uL (0.0-0.7) 04/01/18 05:30 Baso # (Auto) 0.0 K/uL (0.0-0.2) 04/01/18 05:30 PT 13.0 Seconds (9.8-13.1) 03/27/18 09:50 INR 1.1 03/27/18 09:50 Sodium 140 mmol/l (132-148) 03/31/18 09:00 Potassium 3.6 MMOL/L (3.6-5.0) 03/31/18 09:00 Chloride 101 mmol/L (98-107) 03/31/18 09:00 Carbon Dioxide 29 mmol/L (22-30) 03/31/18 09:00 Anion Gap 14 (10-20) 03/31/18 09:00 BUN 15 mg/dl (7-17) 03/31/18 09:00 Creatinine 0.8 mg/dl (0.7-1.2) 03/31/18 09:00 Est GFR ( Amer) > 60 03/31/18 09:00 Est GFR (Non-Af Amer) > 60 03/31/18 09:00 POC Glucose (mg/dL) 330 mg/dL (65-110) H 04/01/18 11:09 Random Glucose 191 mg/dL (65-105) H 03/31/18 09:00 Calcium 8.7 mg/dL (8.4-10.2) 03/31/18 09:00 Total Bilirubin 0.7 mg/dl (0.2-1.3) 03/27/18 09:05 AST 26 U/L (14-36) 03/27/18 09:05 ALT 39 U/L (9-52) 03/27/18 09:05 Alkaline Phosphatase 77 U/L (38-126) 03/27/18 09:05 Total Protein 7.5 G/DL (6.3-8.2) 03/27/18 09:05 Albumin 4.1 g/dL (3.5-5.0) 03/27/18 09:05 Globulin 3.4 gm/dL (2.2-3.9) 03/27/18 09:05 Albumin/Globulin Ratio 1.2 (1.0-2.1) 03/27/18 09:05 Urine Color Yellow (YELLOW) 03/29/18 09:50 Urine Clarity Slighty-cloudy (Clear) 03/29/18 09:50 Urine pH 6.0 (5.0-8.0) 03/29/18 09:50 Ur Specific [place] 1.025 (1.003-1.030) 03/29/18 09:50 Urine Protein 30 mg/dL (NEGATIVE) 03/29/18 09:50 Urine Glucose (UA) 50 mg/dL (NEGATIVE) 03/29/18 09:50 Urine Ketones 20 mg/dL (NEGATIVE) 03/29/18 09:50 Urine Blood Negative (NEGATIVE) 03/29/18 09:50 Urine Nitrate Negative (NEGATIVE) 03/29/18 09:50 Urine Bilirubin Negative (NEGATIVE) 03/29/18 09:50 Urine Urobilinogen 0.2-1.0 mg/dL (0.2-1.0) 03/29/18 09:50 Ur Leukocyte Esterase Trace Basim/uL (Negative) 03/29/18 09:50 Urine RBC (Auto) 2 /hpf (0-3) 03/29/18 09:50 Urine Microscopic WBC 2 /hpf (0-5) 03/29/18 09:50 Ur Squamous Epith Cells 4 /hpf (0-5) 03/29/18 09:50 Blood Type O POSITIVE 03/27/18 10:42 Blood Type Confirm O POSITIVE 03/27/18 12:10 Antibody Screen Negative 03/27/18 10:42 BBK History Checked No verified bt 03/27/18 10:42 - Hospital Course Hospital Course: 73 yo female seen and evaluated in the ED for right open tibial fracture. Patient slipped and fell on 03/27 at home. Patient presented with an open fracture and was taken into the OR for right ankle ORIF with primary closure on 03/27. Patient was initially placed on ciprofloxacin for prophylaxis for 7 days. After low grade fever in the hospital, patient received vanc 1 gm stat dose x 1 on 03/30/18, and started on zosyn 3.375 q6, today Day # 3. Blood cx- no growth for 5 days, repeat BCx no growth x 3 days, and 48 hours. Plan is transfer to [facility]. .Patient seen and examined at bedside this morning. Patient states that pain is well controlled with PRN tylenol. Eating well. Voiding without any complains. Having regular bowel movements. Denies any complains at this evaluation. Afebrile, stable vital signs WNL. Stable for discharged to [facility] to continue with rehabilitation. Patient will be discharged on clindamycin 300 mg 4 times a day to complete a total of 10 days of antibiotics. Patient cleared for discharge by podiatry. - Date & Time of H&P Date of H&P: 03/27/18 Time of H&P: 11:20 Discharge Exam - Head Exam Head Exam: ATRAUMATIC, NORMOCEPHALIC - Skin Additional comments: Constitutional Appears: Non-toxic, No Acute Distress - Eye Exam Eye Exam: Normal appearance - ENT Exam ENT Exam: Mucous Membranes Moist - Respiratory Exam Respiratory Exam: Clear to Ausculation Bilateral, NORMAL BREATHING PATTERN. absent: Rales, Rhonchi, Wheezes, Respiratory Distress - Cardiovascular Exam Cardiovascular Exam: REGULAR RHYTHM, RRR, +S1, +S2 - GI/Abdominal Exam GI & Abdominal Exam: Soft, Normal Bowel Sounds. absent: Distended, Guarding, Rigid, Tenderness - Back Exam Back Exam: NORMAL INSPECTION. absent: CVA tenderness (L), CVA tenderness (R) - Neurological Exam Neurological Exam: Alert, Awake, Oriented x3 Discharge Plan - Discharge Medications Prescriptions: Clindamycin [Cleocin] 300 mg PO Q6 7 Days #28 cap - Follow Up Plan Condition: STABLE Disposition: REHAB FACILITY/REHAB UNIT Patient education suggested?: Yes Instructions: Fibula Fracture, Open Reduction and Internal Fixation Surgery (DC) Additional Instructions: Patient will follow up in podiatry clinic on Tuesday in [facility]. Please call to make an appointment. Referrals: Jemal Tenorio MD [Family Provider] - Lion Shaw DPM [Staff Provider] - <Shayne Sparrow D - Last Filed: 04/01/18 16:24> Provider - Provider Date of Admission: 03/27/18 09:41 Attending physician: Krista Servin DO Consults: 03/27/18 23:11 Nursing Referral for Wound Care Routine Comment: Physician Instructions: Reason For Exam: s/p ORIF RIGHT ANKLE Hospital Course - Lab Results Lab Results: Micro Results 03/29/18 10:46 Blood Blood Culture - Preliminary NO GROWTH AFTER 3 DAYS 03/27/18 09:05 Blood-Venous Blood Culture - Final NO GROWTH AFTER 5 DAYS 03/27/18 09:05 Blood-Venous Gram Stain - Final TEST NOT PERFORMED 03/30/18 05:20 Blood Blood Culture - Preliminary NO GROWTH AFTER 48 HOURS Most Recent Lab Values WBC 6.1 K/uL (4.8-10.8) 04/01/18 05:30 RBC 3.31 Mil/uL (3.80-5.20) L 04/01/18 05:30 Hgb 9.8 g/dL (12.0-16.0) L 04/01/18 05:30 Hct 29.9 % (34.0-47.0) L 04/01/18 05:30 MCV 90.5 fl (81.0-99.0) 04/01/18 05:30 MCH 29.7 pg (27.0-31.0) 04/01/18 05:30 MCHC 32.8 g/dL (33.0-37.0) L 04/01/18 05:30 RDW 13.4 % (11.5-14.5) 04/01/18 05:30 Plt Count 262 K/uL (130-400) 04/01/18 05:30 MPV 8.8 fl (7.2-11.7) 04/01/18 05:30 Neut % (Auto) 63.3 % (50.0-75.0) 04/01/18 05:30 Lymph % (Auto) 23.5 % (20.0-40.0) 04/01/18 05:30 [place] % (Auto) 11.4 % (0.0-10.0) H 04/01/18 05:30 Eos % (Auto) 1.4 % (0.0-4.0) 04/01/18 05:30 Baso % (Auto) 0.4 % (0.0-2.0) 04/01/18 05:30 Neut # (Auto) 3.9 K/uL (1.8-7.0) 04/01/18 05:30 Lymph # (Auto) 1.4 K/uL (1.0-4.3) 04/01/18 05:30 [place] # (Auto) 0.7 K/uL (0.0-0.8) 04/01/18 05:30 Eos # (Auto) 0.1 K/uL (0.0-0.7) 04/01/18 05:30 Baso # (Auto) 0.0 K/uL (0.0-0.2) 04/01/18 05:30 PT 13.0 Seconds (9.8-13.1) 03/27/18 09:50 INR 1.1 03/27/18 09:50 Sodium 140 mmol/l (132-148) 03/31/18 09:00 Potassium 3.6 MMOL/L (3.6-5.0) 03/31/18 09:00 Chloride 101 mmol/L (98-107) 03/31/18 09:00 Carbon Dioxide 29 mmol/L (22-30) 03/31/18 09:00 Anion Gap 14 (10-20) 03/31/18 09:00 BUN 15 mg/dl (7-17) 03/31/18 09:00 Creatinine 0.8 mg/dl (0.7-1.2) 03/31/18 09:00 Est GFR ( Amer) > 60 03/31/18 09:00 Est GFR (Non-Af Amer) > 60 03/31/18 09:00 POC Glucose (mg/dL) 330 mg/dL (65-110) H 04/01/18 11:09 Random Glucose 191 mg/dL (65-105) H 03/31/18 09:00 Calcium 8.7 mg/dL (8.4-10.2) 03/31/18 09:00 Total Bilirubin 0.7 mg/dl (0.2-1.3) 03/27/18 09:05 AST 26 U/L (14-36) 03/27/18 09:05 ALT 39 U/L (9-52) 03/27/18 09:05 Alkaline Phosphatase 77 U/L (38-126) 03/27/18 09:05 Total Protein 7.5 G/DL (6.3-8.2) 03/27/18 09:05 Albumin 4.1 g/dL (3.5-5.0) 03/27/18 09:05 Globulin 3.4 gm/dL (2.2-3.9) 03/27/18 09:05 Albumin/Globulin Ratio 1.2 (1.0-2.1) 03/27/18 09:05 Urine Color Yellow (YELLOW) 03/29/18 09:50 Urine Clarity Slighty-cloudy (Clear) 03/29/18 09:50 Urine pH 6.0 (5.0-8.0) 03/29/18 09:50 Ur Specific [place] 1.025 (1.003-1.030) 03/29/18 09:50 Urine Protein 30 mg/dL (NEGATIVE) 03/29/18 09:50 Urine Glucose (UA) 50 mg/dL (NEGATIVE) 03/29/18 09:50 Urine Ketones 20 mg/dL (NEGATIVE) 03/29/18 09:50 Urine Blood Negative (NEGATIVE) 03/29/18 09:50 Urine Nitrate Negative (NEGATIVE) 03/29/18 09:50 Urine Bilirubin Negative (NEGATIVE) 03/29/18 09:50 Urine Urobilinogen 0.2-1.0 mg/dL (0.2-1.0) 03/29/18 09:50 Ur Leukocyte Esterase Trace Basim/uL (Negative) 03/29/18 09:50 Urine RBC (Auto) 2 /hpf (0-3) 03/29/18 09:50 Urine Microscopic WBC 2 /hpf (0-5) 03/29/18 09:50 Ur Squamous Epith Cells 4 /hpf (0-5) 03/29/18 09:50 Blood Type O POSITIVE 03/27/18 10:42 Blood Type Confirm O POSITIVE 03/27/18 12:10 Antibody Screen Negative 03/27/18 10:42 BBK History Checked No verified bt 03/27/18 10:42 Attending/Attestation - Attestation I have personally seen and examined this patient.: Yes I have fully participated in the care of the patient.: Yes I have reviewed all pertinent clinical information, including history, physical exam and plan: Yes Notes (Text): 04/01/18 16:23 Patient seen and examined with resident. Case discussed and agreed with assessment and plan
[2018-04-01 15:51] VITALS: BP 123/72; PULSE 89; RESP 20; TEMP 99; O2SAT 99
== END 2018-04-01 19:50 | DRG 492 ==
LOC: H.ER 08:36 → H.ERHOLD 09:41 → H.TEL 18:24
PROVIDERS: ADMIT Student in an Organized Health Care Education/Training Program; ATTEND Student in an Organized Health Care Education/Training Program
PROC: 3E0T3BZ Introduction of Anesthetic Agent into Peripheral Nerves and Plexi, Percutaneous Approach (ICD-10-PCS; 2018-03-27)
PROC: 0QSJ04Z Reposition Right Fibula with Internal Fixation Device, Open Approach (ICD-10-PCS; principal; 2018-03-27 11:30)
PROC: 0QSG04Z Reposition Right Tibia with Internal Fixation Device, Open Approach (ICD-10-PCS; 2018-03-27 11:30)
PROC: 0HDMXZZ Extraction of Right Foot Skin, External Approach (ICD-10-PCS; 2018-03-27 11:30)
PROC: 3E0234Z Introduction of Serum, Toxoid and Vaccine into Muscle, Percutaneous Approach (ICD-10-PCS; 2018-03-29)
DX: S82.51XA Displaced fracture of medial malleolus of right tibia, initial encounter for closed fracture (principal); S82.451B Displaced comminuted fracture of shaft of right fibula, initial encounter for open fracture type I or II; W01.0XXA Fall on same level from slipping, tripping and stumbling without subsequent striking against object, initial encounter; Z23 Encounter for immunization; I10 Essential (primary) hypertension; Z79.82 Long term (current) use of aspirin; Z79.84 Long term (current) use of oral hypoglycemic drugs; E11.9 Type 2 diabetes mellitus without complications; Y92.009 Unspecified place in unspecified non-institutional (private) residence as the place of occurrence of the external cause; R50.9 Fever, unspecified; K21.9 Gastro-esophageal reflux disease without esophagitis